=== PATIENT | male | born 1945 | race Caucasian/White ===

== ENCOUNTER → 2017-02-15 | Outpatient (CLI) | payer OTHER ==
[~2017-02-15] MED LIST: AMAN100C18 PO; ASPCH81X PO; CARB1CAP10 PO; CHOL100040 PO; CMBIN INH; PRLSR20 PO; VERA240C2 PO
[2017-02-15 17:49] LABS: FREE PSA 0.07 ng/ml; PROSTATE SPECIFIC ANTIGEN 0.236 ng/ml (0.000-4.000); THYROID STIMULATING HORMONE 0.723 uIu/ml (0.300-4.500)
[2017-02-15 20:21] LABS: LYME DISEASE AB IGG NEG (NEG); LYME DISEASE AB IGM NEG (NEG)
[2017-02-16 05:57] LABS: ESTIMATED AVERAGE GLUCOSE 128 mg/dl; HA1C FLAG Normal (Normal)
--- NOTE | 2017-02-20 08:00 | CODING QUERY MEDICAL NECESSITY ---
SUPPORTING DIAGNOSIS NEEDED Felix PARSONS, A supporting diagnosis is required for the test/procedure performed on this patient in order for us to be reimbursed by the patient's insurance. Please provide a supporting diagnosis for the following test/procedure listed below next to the test name along with your signature. *If there is no additional diagnosis for this patient that would support the following test/procedure please document that below next to the test/procedure. Test(s)/Procedure(s) that require a supporting diagnosis: * 13034 GLYCATED HEMOGLOBIN DIAGNOSIS: * 63466 PSA DIAGNOSIS: DATE OF SERVICE: 02/15/17 Provider Signature: Date: Thank you Alvaro Lozano Health Information Management Once completed, please kindly fax back to [phone] For questions please call [phone]
== END | disposition home or self-care (01) ==
LOC: C.LABPBG 15:54
PROVIDERS: ATTEND Physician Assistant
DX: R63.4 Abnormal weight loss (principal); R53.83 Other fatigue; N40.0 Benign prostatic hyperplasia without lower urinary tract symptoms

== ENCOUNTER → 2017-03-04 | Outpatient (CLI) | payer OTHER ==
[2017-03-04 17:48] LABS: BASO % 0.4 %; BASO ABS # 0.03 K/uL (0-0.2); COMPLETE YES; EOS % 3.8 %; HEMATOCRIT 41.1 % (42-52); IG% 0.4 %; LYMPH % 14.3 %; LYMPH ABS # 1.19 K/uL (1.2-3.4); MEAN CELL VOLUME 94.3 fL (80-100); MEAN CORPUSCULAR HEMOGLOBIN 30.7 pg (25-34); MEAN CORPUSCULAR HGB CONC 32.6 g/dl (32-36); MEAN PLATELET VOLUME 10.6 fL (7.4-10.4); MONO % 8.9 %; NEUT % 72.2 %; PLATELET COUNT 273 K/uL (130-400); RED BLOOD COUNT 4.36 M/uL (4.7-6.1); WHITE BLOOD COUNT 8.32 K/uL (4.8-10.8)
[2017-03-04 18:02] LABS: CALCIUM 8.7 mg/dl (8.5-10.1)
[2017-03-04 18:06] LABS: ALB/GLOB RATIO 1.2 (0.9-2); ALKALINE PHOSPHATASE 91 U/L (45-117); ALT/SGPT 11 U/L (12-78); AST/SGOT 20 U/L (15-37); BLOOD UREA NITROGEN 15 mg/dl (7-18); BUN/CREATININE RATIO 19.6 (10-20); CARBON DIOXIDE 28 mmol/L (21-32); CHLORIDE 103 mmol/L (98-107); CREATININE 0.74 mg/dl (0.60-1.40); GLUCOSE 108 mg/dl (70-99); POTASSIUM 4.1 mmol/L (3.5-5.1); SODIUM 139 mmol/L (136-145)
== END | disposition home or self-care (01) ==
LOC: C.LABPBG 14:42
PROVIDERS: ATTEND Physician Assistant
DX: R63.4 Abnormal weight loss (principal)

== ENCOUNTER → 2017-09-10 | Outpatient (CLI) | payer OTHER ==
[2017-09-10 17:35] LABS: BASO % 0.4 %; BASO ABS # 0.03 K/uL (0-0.2); COMPLETE YES; EOS % 1.7 %; HEMATOCRIT 42.5 % (42-52); IG% 0.4 %; LYMPH % 10.9 %; LYMPH ABS # 0.92 K/uL (1.2-3.4); MEAN CELL VOLUME 95.1 fL (80-100); MEAN CORPUSCULAR HGB CONC 33.6 g/dl (32-36); MEAN PLATELET VOLUME 10.6 fL (7.4-10.4); MONO % 9.3 %; NEUT % 77.3 %; PLATELET COUNT 271 K/uL (130-400); RED BLOOD COUNT 4.47 M/uL (4.7-6.1); WHITE BLOOD COUNT 8.47 K/uL (4.8-10.8)
[2017-09-10 18:04] LABS: ALT/SGPT 11 U/L (12-78); AST/SGOT 16 U/L (15-37); BLOOD UREA NITROGEN 14 mg/dl (7-18); BUN/CREATININE RATIO 18.7 (10-20); CALCIUM 8.2 mg/dl (8.5-10.1); CARBON DIOXIDE 27 mmol/L (21-32); CHLORIDE 100 mmol/L (98-107); CREATININE 0.77 mg/dl (0.60-1.40); GLUCOSE 91 mg/dl (70-99); POTASSIUM 4.2 mmol/L (3.5-5.1); SODIUM 133 mmol/L (136-145)
[2017-09-10 18:16] LABS: ALB/GLOB RATIO 1.1 (0.9-2); ALKALINE PHOSPHATASE 95 U/L (45-117); CHOLESTEROL 158 mg/dl (0-200); CHOLESTEROL/HDL RATIO 1.9; HDL CHOLESTEROL 82 mg/dl; LDL CHOLESTEROL CALCULATED 66 mg/dl; TRIGLYCERIDES 49 mg/dl (0-150); VERY LOW DENSITY LIPOPROT CALC 10 mg/dl
[2017-09-10 19:01] LABS: LYME DISEASE AB IGG NEG (NEG); LYME DISEASE AB IGM NEG (NEG)
[2017-09-11 07:13] LABS: ESTIMATED AVERAGE GLUCOSE 123 mg/dl; HA1C FLAG Normal (Normal)
== END | disposition home or self-care (01) ==
LOC: C.LABPBG 12:04
PROVIDERS: ATTEND Internal Medicine Geriatric Medicine
DX: E78.5 Hyperlipidemia, unspecified (principal); E53.8 Deficiency of other specified B group vitamins; R73.9 Hyperglycemia, unspecified; R63.4 Abnormal weight loss; R41.3 Other amnesia

== ENCOUNTER → 2017-12-09 | Outpatient (CLI) | payer OTHER | END | disposition home or self-care (01) | LOC: C.LABPBG 12:38 | PROVIDERS: ATTEND Physician Assistant | DX: G40.909 Epilepsy, unspecified, not intractable, without status epilepticus (principal) ==

== ENCOUNTER 2019-06-03 17:24 | Observation (INO) ==
[2019-06-03] MEDS ORDERED: SODIUM CHLORIDE 0.9% 500 ML IV SCH (19:00)
[2019-06-03 19:45] LABS: Basophils # (auto) 0.02 K/uL (0-0.2); Basophils % (auto) 0.1 %; Eosinophils # (auto) 0.04 K/uL (0-0.5); Eosinophils % (auto) 0.3 %; Hematocrit (blood only) 43.4 % (42-52); Hemoglobin 14.8 g/dL (14.0-18.0); Immature Granulocytes # (auto) 0.04 K/uL (0.00-0.02); Immature Granulocytes % (auto) 0.3 %; Lymphocytes # (auto) 0.57 K/uL (1.2-3.4); Lymphocytes % (auto) 3.8 %; Mean Corpuscular Hemoglobin 31.4 pg (25-34); Mean Corpuscular Hgb Conc 34.1 g/dL (32-36); Mean Corpuscular Volume 92.1 fL (80-100); Mean Platelet Volume 10.8 fL (7.4-10.4); Monocytes # (auto) 1.11 K/uL (0.11-0.59); Monocytes % (auto) 7.3 %; Neutrophils # (auto) 13.36 K/uL (1.4-6.5); Neutrophils % (auto) 88.2 %; Platelet Count 241 K/uL (130-400); RDW Coefficient of Variation 14.8 % (11.5-14.5); RDW Standard Deviation 50.3 fL (36.4-46.3); Red Blood Count 4.71 M/uL (4.7-6.1); White Blood Count 15.14 K/uL (4.8-10.8)
[2019-06-03 19:57] LABS: BUN Creatinine Ratio 24.4 (10-20); Blood Urea Nitrogen 24 mg/dl (7-18); Calcium 8.5 mg/dl (8.5-10.1); Carbon Dioxide 24 mmol/L (21-32); Chloride 106 mmol/L (98-107); Creatinine Clr Calc Pharmacy 57.9 ml/min; Est GFR (African American) 88.9; Est GFR (Non-African American) 76.7; Glucose 109 mg/dl (70-99); Lipase 78 U/L (73-393); Magnesium 2.2 mg/dl (1.8-2.4); Potassium 4.2 mmol/L (3.5-5.1); Sodium 139 mmol/L (136-145)
[2019-06-03 20:03] LABS: Alanine Aminotransferase 9 U/L (12-78); Albumin Globulin Ratio 1.1 (0.9-2); Alkaline Phosphatase 105 U/L (45-117); Aspartate Aminotransferase 18 U/L (15-37); Bilirubin,Total 0.6 mg/dl (0.2-1); Globulin 3.8 gm/dl (2.5-4.0); Total Protein 7.8 gm/dl (6.4-8.2); Troponin I < 0.015 ng/ml (0-0.045)
[2019-06-03] MEDS ORDERED: IOVERSOL 100ml IV PRN (20:22)
--- NOTE | 2019-06-03 20:42 | CT Scan Report ---
CT abd pelvis IV con only CLINICAL HISTORY: 73 years-old Male presenting with possible obstruction, history of Parkinson's dise ase. TECHNIQUE: Multidetector CT of the abdomen and pelvis was performed after the administration of intra venous contrast. IV contrast: 90 mL of Optiray 320. One or more dose lowering techniques were used co nsistent with the principles of ALARA (as low as reasonably achievable), including automatic exposure control, mA or kV adjustment to individual patient size, and/or use of iterative reconstruction. COMPARISON: 08/05/2018. CT DOSE (mGy.cm): The estimated cumulative dose is 256.67 mGy.cm. FINDINGS: Front Desk Associate topogram: Unremarkable. Motion artifact degradation from the patient's tremors results in moderate image quality degradation and moderately limited diagnostic sensitivity. Lung bases: Aortic valve and mitral annular calcification. Normal heart size. No pericardial or pleur al effusion. No focal infiltrate or nodule at the lung bases. Liver: Congenital hypoplasia of the medial segments of the left hepatic lobe. No focal lesion. Patent hepatic vasculature. Biliary: No intrahepatic or extrahepatic biliary ductal dilatation. Normal gallbladder. Pancreas: Normal. Spleen: Normal. Adrenal glands: Normal. Kidneys and ureters: Exophytic dominant simple cyst in the right kidney. Kidneys otherwise normal. Bladder: Incompletely evaluated secondary to underdistention. Pelvic organs: Prostate enlargement likely secondary to benign prostatic hyperplasia. Bowel: The rectum is moderately distended with liquid stool suggesting a diarrheal state. The colon i s diffusely mildly distended with fluid and gas. There may be wall thickening in the ascending colon though this is not well delineated. No bowel obstruction. Small bowel wall thickening is suggested in the proximal ileum in the left mid abdomen. Trace hiatal hernia. Peritoneal cavity: No free fluid or intraperitoneal gas. Lymph nodes: No enlarged lymph nodes in the abdomen or pelvis. Vasculature: Atherosclerosis of the normal caliber abdominal aorta. IVC patent. Abdominal wall: Normal. Musculoskeletal: Degenerative changes of the spine. IMPRESSION: Motion artifact degradation from the patient's tremors results in moderate image quality degradation and moderately limited diagnostic sensitivity. 1. Fluid throughout the large bowel is evidence of a diarrheal state. There is also suggestion of pr oximal small bowel wall thickening. This could represent mild enterocolitis. No bowel obstruction. Electronically signed by: Isaias Ojeda M.D. 06/03/2019 8:40 PM
[2019-06-03] MEDS ORDERED: CARBIDOPA/LEVODOPA 25/100MG TAB PO STA (20:59)
[2019-06-03] MEDS ORDERED: ONDANSETRON INJ 2 MG/ML 2 ML VIAL IV PRN (23:38)
[2019-06-03] MEDS ORDERED: ALBUTEROL HFA 8 GM INHALER INH PRN (23:38)
[2019-06-03] MEDS ORDERED: ONDANSETRON 4 MG OD TAB PO PRN (23:38)
[2019-06-03] MEDS ORDERED: ACETAMINOPHEN 500 MG TAB PO PRN (23:38)
[2019-06-04] MEDS: NSS + 20MEQ KCL 20 MEQ/1,000 ML BAG IV SCH ×2 (01:13→08:14)
[2019-06-04] MEDS: CARBAMAZEPINE 100 MG TABCR PO SCH ×2 (01:15→08:10)
[2019-06-04] MEDS: CARBIDOPA/LEVODOPA 25/100MG TAB PO SCH ×5 (01:16→15:16)
[2019-06-04] MEDS: CARVEDILOL 6.25 MG TAB PO SCH ×2 (01:17→08:10)
--- NOTE | 2019-06-04 03:32 | History & Physical Report ---
Date of Service June 04, 2019 The patient was seen and admitted on June 03, 2019 Assessment & Plan (1) Enterocolitis: Generalized abdominal pain/enterocolitis/ileus- Order stool culture and C. difficile. There is a potential that this is a food ingestion issue. Patient is being admitted due to history of volvulus requiring procedures in the past. Full liquid diet as tolerated. Zofran 4 mg IV every 6 hours PRN. Famotidine 20 mg IV every 12 hours. Supportive treatment for now. Present on Admission?: Yes (2) Diffuse abdominal pain: See above Present on Admission?: Yes (3) Ileus: See above Present on Admission?: Yes (4) Parkinsons disease: Continue carbidopa levodopa Present on Admission?: Yes (5) Dyslipidemia: Continue atorvastatin Present on Admission?: Yes (6) Seizure, epileptic: Seizure disorder/anxiety with depression- Continue buspirone, carbamazepine, fluoxetine, sertraline. Present on Admission?: Yes (7) Depression with anxiety: See above Present on Admission?: Yes (8) Hyperactive airway disease: Continue Symbicort and pro-air HFA. Present on Admission?: Yes (9) Hypertension: Hypertension/hypertrophic cardia myopathy/aortic stenosis- Continue carvedilol 6.25 mg p.o. twice daily with hold parameters, and aspirin. Hold furosemide as needed Present on Admission?: Yes (10) Cardiomyopathy, hypertrophic: See above Present on Admission?: Yes History of Present Illness Chief Complaint: The patient presents to the emergency department with 2 to 3 days of loose stools and abdominal discomfort. Primary Care Provider: Geraldine Zaman DO The patient is a 73-year-old male with a past medical history significant for volvulus, who presents emergency department with persistent abdominal discomfort with loose stools. His work-up in the emergency department included a CT scan of abdomen pelvis, which showed a fluid-filled colon, consistent with enterocolitis. However, because of his significant history of volvulus, the recommendation is to admit the patient for observation overnight. Upon questioning, the patient does report that he did eat out a couple days before he became sick, but he reports that they were at 80 degrees where he has frequented in the past, and does not know if there is a single food that might of been a problem. Allergies Allergy/AdvReac Type Severity Reaction Status Date / Time No Known Allergies Allergy Verified 06/03/19 13:26 Home Medications Home Medications Medication Instructions Recorded Confirmed Type Symbicort 2 puff INHALATION QAM 06/04/18 06/03/19 History albuterol sulfate [ProAir HFA] 1 - 2 puff INHALATION Q6 PRN 06/04/18 06/03/19 History aspirin [Aspirin Low Dose] 81 mg PO DAILY 06/04/18 06/03/19 History atorvastatin [Lipitor] 40 mg PO HS 06/04/18 06/03/19 History carbidopa-levodopa 2.5 tab PO 5XD 06/04/18 06/03/19 History carvedilol [Coreg] 6.25 mg PO BID 06/04/18 06/03/19 History melatonin 10 mg PO HS PRN 06/04/18 06/03/19 History omeprazole 20 mg PO DAILY 06/04/18 06/03/19 History polyethylene glycol 3350 [Miralax] 34 g PO DAILY PRN 06/04/18 06/03/19 History acetaminophen [Tylenol Extra 1,000 mg PO Q6H PRN 06/06/18 06/03/19 History Strength] ondansetron [Zofran ODT] 4 mg PO Q6 PRN 06/06/18 06/03/19 History furosemide [Lasix] 20 mg PO DAILY PRN 08/05/18 06/03/19 History cholecalciferol (vitamin D3) 2,000 2,000 units PO DAILY #30 cap 03/25/19 06/03/19 Rx unit capsule tamsulosin 0.4 mg capsule 0.4 mg PO QPM #90 cap 04/20/19 06/03/19 Rx fluoxetine 20 mg capsule 20 mg PO DAILY 90 Days #90 cap 06/02/19 06/03/19 Rx buspirone 10 mg PO DAILYBL 06/03/19 06/03/19 History buspirone 10 mg tablet 20 mg PO [facility] tab 06/03/19 06/03/19 History carbamazepine 300 mg PO BID 06/03/19 06/03/19 History sennosides-docusate sodium [Senna 2 tab PO BID 06/03/19 06/03/19 History with Docusate Sodium] sertraline 100 mg PO DAILY 06/03/19 06/03/19 History Past Med/Surg History Medical History GERD (gastroesophageal reflux disease) Hypertension BPH (benign prostatic hyperplasia) Mild cognitive impairment Anxiety Aortic stenosis Cardiomyopathy, hypertrophic Carotid atherosclerosis Constipation, chronic Depression with anxiety Dyslipidemia Hyperactive airway disease Mitral and aortic regurgitation Orthostatic hypotension Parkinsons disease REM sleep behavior disorder Seizure, epileptic Urgency incontinence Vitamin B12 deficiency Vitamin D deficiency Renal cyst Right 8 cm minimally complex cyst-needs routine f/u after discharge-consider Urology referral as outpt Hypertension (Inactive) Acute respiratory failure with hypoxia Anemia BPH (benign prostatic hyperplasia) Depression GERD (gastroesophageal reflux disease) History of open sigmoidectomy Hypertrophic cardiomyopathy Hyponatremia LLL pneumonia Mitral regurgitation Parkinson disease Seizure disorder Sigmoid volvulus Volvulus Surgical History H/O colonoscopy last scope was in 2012 History of colectomy History of tonsillectomy [place] teeth extracted Family History Mother , age 68 of ovarian cancer. Ovarian cancer Colorectal cancer Father , age 83 with congestive heart failure and had [place] son's disease since age 70. 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 Feels Safe at Home: Yes Safety Concerns: Feels Safe At This Time Smoking Status: Never smoker Second Hand Exposure: Yes ; Hx Alcohol Use: Yes Alcohol type: beer Hx Substance Use: No Review of Systems Review of Systems: The patient denies chest pain, palpitations, shortness of breath, dyspnea on exertion, cough, lower extremity swelling, sore throat, fevers, chills, sweats, constipation, blood in urine or stool, dysuria, urinary frequency or urgency, lightheadedness, dizziness, headache, memory loss, loss of consciousness, rash, abnormal bruising or bleeding, imbalance, focal or generalized weakness, numbness or tingling in arms or legs, generalized arthralgias or myalgias, back or neck pain, or night sweats. The review of systems is otherwise negative other than for that already noted above, and at least 10 systems have been reviewed. Physical Exam Physical Exam: The patient is awake, alert and oriented 3, well developed and well nourished, normocephalic and atraumatic, lying in bed and in no acute distress. HEENT--PERRL, EOMI, mucous membranes and oropharynx dry. Neck--supple. No JVD. No bruits. Thyroid normal, trachea midline, no adenopathy. Heart--normal S1 and S2. No murmurs, rubs or gallops. Lungs--clear bilaterally, no respiratory distress, no accessory muscle use. Abdomen--normal bowel sounds and soft. Nontender. Nondistended, no hernias or masses, no organomegaly. Extremities--no cyanosis or clubbing. No edema. There are good distal pulses b/l. Dermatologic--normal skin turgor, normal color, no abnormal lymph nodes, no rash. Neurologic--cranial nerves II through XII grossly intact. Patient has baseline tremor worse with left upper extremity, but may involve all extremities Rheumatologic--exam limited by frequent tremors and shakes Psychiatric--normal affect. Results & Data Vital Signs (Past 12 Hours) Vital Signs Temp Pulse Pulse Resp BP BP BP 06/04/19 00:00 98.2 F 66 18 138/71 06/03/19 23:30 98.2 F 66 18 138/71 06/03/19 22:36 72 20 137/47 L 06/03/19 22:30 79 17 06/03/19 22:00 65 18 138/68 06/03/19 21:36 67 18 155/56 H 06/03/19 21:31 71 23 06/03/19 21:00 76 16 06/03/19 20:30 77 16 06/03/19 20:16 64 16 06/03/19 20:11 66 20 06/03/19 20:04 65 16 146/69 H 06/03/19 17:42 97.9 F 64 18 95/60 L Pulse Ox 06/04/19 00:00 95 06/03/19 23:30 95 06/03/19 22:36 94 06/03/19 22:30 06/03/19 22:00 93 06/03/19 21:36 94 06/03/19 21:31 94 06/03/19 21:00 96 06/03/19 20:30 06/03/19 20:16 94 06/03/19 20:11 95 06/03/19 20:04 95 06/03/19 17:42 95 Laboratory Results Laboratory Results WBC 15.14 K/uL (4.8-10.8) H 06/03/19 19:21 RBC 4.71 M/uL (4.7-6.1) 06/03/19 19:21 Hgb 14.8 g/dL (14.0-18.0) 06/03/19 19:21 Hct 43.4 % (42-52) 06/03/19 19:21 MCV 92.1 fL (80-100) 06/03/19 19:21 MCH 31.4 pg (25-34) 06/03/19 19: MCHC 34.1 g/dL (32-36) 06/03/19 19:21 RDW Std Deviation 50.3 fL (36.4-46.3) H 06/03/19 19:21 RDW Coeff of [place] 14.8 % (11.5-14.5) H 06/03/19 19:21 Plt Count 241 K/uL (130-400) 06/03/19 19:21 MPV 10.8 fL (7.4-10.4) H 06/03/19 19:21 Immature Gran % (Auto) 0.3 % 06/03/19 19:21 Neut % (Auto) 88.2 % 06/03/19 19:21 Lymph % (Auto) 3.8 % 06/03/19 19:21 Andrew % (Auto) 7.3 % 06/03/19 19:21 Eos % (Auto) 0.3 % 06/03/19 19:21 Baso % (Auto) 0.1 % 06/03/19 19:21 Immature Gran # (Auto) 0.04 K/uL (0.00-0.02) H 06/03/19 19:21 Neut # (Auto) 13.36 K/uL (1.4-6.5) H 06/03/19 19:21 Lymph # (Auto) 0.57 K/uL (1.2-3.4) L 06/03/19 19:21 Andrew # (Auto) 1.11 K/uL (0.11-0.59) H 06/03/19 19:21 Eos # (Auto) 0.04 K/uL (0-0.5) 06/03/19 19:21 Baso # (Auto) 0.02 K/uL (0-0.2) 06/03/19 19:21 Sodium 139 mmol/L (136-145) 06/03/19 19:21 Potassium 4.2 mmol/L (3.5-5.1) 06/03/19 19:21 Chloride 106 mmol/L (98-107) 06/03/19 19:21 Carbon Dioxide 24 mmol/L (21-32) 06/03/19 19:21 Anion Gap 9.0 (3-11) 06/03/19 19:21 BUN 24 mg/dl (7-18) H 06/03/19 19:21 Creatinine 0.98 mg/dl (0.6-1.4) 06/03/19 19:21 Est Cr Clr Drug Dosing 57.9 ml/min 06/03/19 19:21 Est GFR ( Amer) 88.9 06/03/19 19:21 Est GFR (Non-Af Amer) 76.7 06/03/19 19:21 BUN/Creatinine Ratio 24.4 (10-20) H 06/03/19 19:21 Glucose 109 mg/dl (70-99) H 06/03/19 19:21 Calcium 8.5 mg/dl (8.5-10.1) 06/03/19 19:21 Magnesium 2.2 mg/dl (1.8-2.4) 06/03/19 19:21 Total Bilirubin 0.6 mg/dl (0.2-1) 06/03/19 19:21 AST 18 U/L (15-37) 06/03/19 19:21 ALT 9 U/L (12-78) L 06/03/19 19:21 Alkaline Phosphatase 105 U/L (45-117) 06/03/19 19:21 Troponin I < 0.015 ng/ml (0-0.045) 06/03/19 19:21 Total Protein 7.8 gm/dl (6.4-8.2) 06/03/19 19:21 Albumin 4.0 gm/dl (3.4-5.0) 06/03/19 19:21 Globulin 3.8 gm/dl (2.5-4.0) 06/03/19 19:21 Albumin/Globulin Ratio 1.1 (0.9-2) 06/03/19 19:21 Lipase 78 U/L (73-393) 06/03/19 19:21 Carbamazepine 10.9 mcg/ml (4-12) 06/03/19 19:21 Diagnostic Findings [place], [place] [phone] CT Scan Report Patient: TRAVIS OLMSTEAD DAdmit Date: 06/03/19 MR#: [id number]: [address] Acct ID:[id number]: Date: 1945[facility] Zip: [place] [address] Age: 73Location: ED Sex: M Room/Bed: Att Phy:Diagnosis: BOWEL OBSTRUCTION An Phy: Geraldine Zaman, DOService Date: 06/03/19 Fam Phy:Interpreting Phy: Isaias Ojeda MD Admit Phy: Ordering Phy: Shiv Riley M.D. cc: ~ CT abd pelvis IV con only CLINICAL HISTORY: 73 years-old Male presenting with possible obstruction, history of Parkinson's disease. TECHNIQUE: Multidetector CT of the abdomen and pelvis was performed after the administration of intravenous contrast. IV contrast: 90 mL of Optiray 320. One or more dose lowering techniques were used consistent with the principles of ALARA (as low as reasonably achievable), including automatic exposure control, mA or kV adjustment to individual patient size, and/or use of iterative reconstruction. COMPARISON: 08/05/2018. CT DOSE (mGy.cm): The estimated cumulative dose is 256.67 mGy.cm. FINDINGS: Auxiliary Operator topogram: Unremarkable. Motion artifact degradation from the patient's tremors results in moderate image quality degradation and moderately limited diagnostic sensitivity. Lung bases: Aortic valve and mitral annular calcification. Normal heart size. No pericardial or pleural effusion. No focal infiltrate or nodule at the lung bases. Liver: Congenital hypoplasia of the medial segments of the left hepatic lobe. No focal lesion. Patent hepatic vasculature. Biliary: No intrahepatic or extrahepatic biliary ductal dilatation. Normal gallbladder. Pancreas: Normal. Spleen: Normal. Adrenal glands: Normal. Kidneys and ureters: Exophytic dominant simple cyst in the right kidney. Kidneys otherwise normal. Bladder: Incompletely evaluated secondary to underdistention. Pelvic organs: Prostate enlargement likely secondary to benign prostatic hyperplasia. Bowel: The rectum is moderately distended with liquid stool suggesting a diarrheal state. The colon is diffusely mildly distended with fluid and gas. There may be wall thickening in the ascending colon though this is not well delineated. No bowel obstruction. Small bowel wall thickening is suggested in the proximal ileum in the left mid abdomen. Trace hiatal hernia. Peritoneal cavity: No free fluid or intraperitoneal gas. Lymph nodes: No enlarged lymph nodes in the abdomen or pelvis. Vasculature: Atherosclerosis of the normal caliber abdominal aorta. IVC patent. Abdominal wall: Normal. Musculoskeletal: Degenerative changes of the spine. IMPRESSION: Motion artifact degradation from the patient's tremors results in moderate image quality degradation and moderately limited diagnostic sensitivity. 1. Fluid throughout the large bowel is evidence of a diarrheal state. There is also suggestion of proximal small bowel wall thickening. This could represent mild enterocolitis. No bowel obstruction. Electronically signed by: Isaias Ojeda M.D. 06/03/2019 8:40 PM Dictated: 06/03/192032 Transcribed: 06/03/192032 Code Status & VTE Plan Code Status Full code VTE Prophylaxis Plan VTE Prophylaxis will be ordered: Yes PG Care Time/CCT Total # of Minutes Spent Total Time Spent with Patient: Total time spent is greater than 50% in coordination of care (as documented) at patient's floor/unit and/or counseling patient:
[2019-06-04] MEDS ORDERED: FLUOXETINE HCL 20 MG CAP PO SCH (09:00)
[2019-06-04] MEDS ORDERED: ASPIRIN 81 MG ECTAB PO SCH (09:00)
[2019-06-04] MEDS ORDERED: PANTOprazole 40 MG TAB PO SCH (09:00)
[2019-06-04] MEDS ORDERED: BUDESONIDE/FORMOTEROL FUMARATE 80/4.5 60 PUFFS/INHALER INH SCH (09:00)
[2019-06-04] MEDS ORDERED: SERTRALINE HCL 50 MG TABLET PO SCH (09:00)
[2019-06-04] MEDS ORDERED: CHOLECALCIFEROL 1,000 UNITS TAB PO SCH (09:00)
--- NOTE | 2019-06-04 12:13 | Emergency Department Note ---
Entered by Mario Lema acting as a scribe for Shiv Riley MD History of Present Illness General Chief complaint: GI Assessment Stated complaint: BOWEL OBSTRUCTION Time Seen by Provider: 06/03/19 18:47 Source: patient History of Present Illness Onset (ago): hour(s) (this morning) Location: abdomen Pain Consistency: + constant Maximum Pain Intensity: 4 Current Pain Intensity: 1 Associated symptoms: + denies other symptoms (bloating and fullness to the abdomen) and + other (nausea, constipation) The patient is a 73 y/o male who presents to the ED after having an abdominal x- ray at his PCP's office that showed a bowel obstruction. The patient states for the past 48 hours, he has had an upset stomach with intermittent constipation. He reports he did a Dulcolax suppository that relieved his constipation. The patient notes he developed constant abdominal pain and intermittent nausea this morning. He rates his current discomfort a 1/10 with the max being a 4/10. He states he took Zofran for his nausea which helped. The patient reports he was then evaluated at his PCP's office today and had an abdominal x-ray performed that showed he had an obstruction. He notes a history of an obstruction around this same time last year that was caused by a volvulus. The patient states he had to have part of his bowel removed to resolve his obstruction. He reports his symptoms feel similar to the last time he had an obstruction. The patient notes he does not feel bloated or full in his abdomen, and he has not eaten today. He states he feels warm but did not take his temperature today. The patient reports he is still able to urinate. He notes a history of Parkinson's disease and a heart murmur. Home Medications Home Medications Medication Instructions Recorded Confirmed Type Symbicort 2 puff INHALATION QAM 06/04/18 06/03/19 History albuterol sulfate [ProAir HFA] 1 - 2 puff INHALATION Q6 PRN 06/04/18 06/03/19 History aspirin [Aspirin Low Dose] 81 mg PO DAILY 06/04/18 06/03/19 History atorvastatin [Lipitor] 40 mg PO HS 06/04/18 06/03/19 History carbidopa-levodopa 2.5 tab PO 5XD 06/04/18 06/03/19 History carvedilol [Coreg] 6.25 mg PO BID 06/04/18 06/03/19 History melatonin 10 mg PO HS PRN 06/04/18 06/03/19 History omeprazole 20 mg PO DAILY 06/04/18 06/03/19 History polyethylene glycol 3350 [Miralax] 34 g PO DAILY PRN 06/04/18 06/03/19 History acetaminophen [Tylenol Extra 1,000 mg PO Q6H PRN 06/06/18 06/03/19 History Strength] ondansetron [Zofran ODT] 4 mg PO Q6 PRN 06/06/18 06/03/19 History furosemide [Lasix] 20 mg PO DAILY PRN 08/05/18 06/03/19 History cholecalciferol (vitamin D3) 2,000 2,000 units PO DAILY #30 cap 03/25/19 0 06/03/19 Rx unit capsule tamsulosin 0.4 mg capsule 0.4 mg PO QPM #90 cap 04/20/19 06/03/19 Rx fluoxetine 20 mg capsule 20 mg PO DAILY 90 Days #90 cap 06/02/19 06/03/19 Rx buspirone 10 mg PO DAILYBL 06/03/19 06/03/19 History buspirone 10 mg tablet 20 mg PO AMHS tab 06/03/19 06/03/19 History carbamazepine 300 mg PO BID 06/03/19 06/03/19 History sennosides-docusate sodium [Senna 2 tab PO BID 06/03/19 06/03/19 History with Docusate Sodium] sertraline 100 mg PO DAILY 06/03/19 06/03/19 History Allergies Allergy/AdvReac Type Severity Reaction Status Date / Time No Known Allergies Allergy Verified 06/03/19 13:26 Past Med/Surg History Medical History Aortic stenosis (Acute) Cardiomyopathy, hypertrophic (Acute) Carotid atherosclerosis (Acute) Constipation, chronic (Acute) Depression with anxiety (Acute) Dyslipidemia (Acute) Hyperactive airway disease (Acute) Memory loss (Acute) Mitral and aortic regurgitation (Acute) Orthostatic hypotension (Acute) Parkinsons disease (Acute) REM sleep behavior disorder (Acute) Seizure, epileptic (Acute) Urgency incontinence (Acute) Vitamin B12 deficiency (Acute) Vitamin D deficiency (Acute) Renal cyst Right 8 cm minimally complex cyst-needs routine f/u after discharge-consider Urology referral as outpt Hypertension (Inactive) Acute respiratory failure with hypoxia Anemia Anxiety BPH (benign prostatic hyperplasia) BPH (benign prostatic hyperplasia) Depression GERD (gastroesophageal reflux disease) GERD (gastroesophageal reflux disease) History of open sigmoidectomy Hyperlipidemia Hypertension Hypertrophic cardiomyopathy Hyponatremia Ileus LLL pneumonia Mild cognitive impairment Mitral regurgitation Parkinson disease Seizure disorder Seizures Sigmoid volvulus Volvulus Surgical History H/O colonoscopy last scope was in 2013 History of colectomy History of tonsillectomy [place] teeth extracted Family History Mother , age 68 of ovarian cancer. Ovarian cancer Colorectal cancer Father , age 83 with congestive heart failure and had Parkinson's disease since age 70. 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 Feels Safe at Home: Yes Safety Concerns: Feels Safe At This Time Smoking Status: Never smoker Second Hand Exposure: Yes ; Hx Alcohol Use: Yes Alcohol type: beer Hx Substance Use: No Review of Systems See HPI for pertinent positives & negatives. and A total of 10 systems reviewed and were otherwise negative Physical Exam Vital Signs Vital Signs - 24 hr 06/03/19 17:42 06/03/19 20:04 06/03/19 20:11 Temperature 36.6 C Temperature Source Oral Sepsis Recent Fever Within 48 Hours Yes Sepsis New/Unexplained Change in Mental Status No Sepsis Action Taken by Nursing No Action Required Pulse Rate 64 65 66 Pulse Rate from SpO2 Sensor 65 Pulse Rhythm Regular Respiratory Rate 18 16 20 Blood Pressure 95/60 L 146/69 H Blood Pressure Mean 71 94 Pulse Oximetry 95 95 95 Oxygen Delivery Method Room Air Room Air 06/03/19 20:16 06/03/19 20:30 06/03/19 21:00 Temperature Temperature Source Sepsis Recent Fever Within 48 Hours Sepsis New/Unexplained Change in Mental Status Sepsis Action Taken by Nursing Pulse Rate 64 77 76 Pulse Rate from SpO2 Sensor 65 77 Pulse Rhythm Respiratory Rate 16 16 16 Blood Pressure Blood Pressure Mean Pulse Oximetry 94 96 Oxygen Delivery Method 06/03/19 21:31 06/03/19 21:36 06/03/19 22:00 Temperature Temperature Source Sepsis Recent Fever Within 48 Hours Sepsis New/Unexplained Change in Mental Status Sepsis Action Taken by Nursing Pulse Rate 71 67 65 Pulse Rate from SpO2 Sensor 70 67 65 Pulse Rhythm Respiratory Rate 23 18 18 Blood Pressure 155/56 H 138/68 Blood Pressure Mean 89 91 Pulse Oximetry 94 94 93 Oxygen Delivery Method GENERAL: Patient is in no acute distress. HEENT: No acute trauma, normocephalic atraumatic, mucous membranes moist, no nasal congestion, no scleral icterus. NECK: No stridor, no adenopathy, no meningismus, trachea is midline. LUNGS: Clear to auscultation bilaterally, no wheeze, no rhonchi, breath sounds equal. HEART: 3/6 systolic murmur, regular rate and rhythm. ABDOMEN: Soft, mildly diffusely tender upon palpation, bowel sounds positive, no hernias, no peritonitis. EXTREMITIES: No cyanosis or edema, full range of motion of all the joints without pain or difficulty, no signs for acute trauma. NEUROLOGIC: Oriented x 3, no acute motor or sensory deficits, no focal weakness. Extremity tremor noted. SKIN: No rash, no jaundice, no diaphoresis. Course 1850: Past medical records reviewed. The patient was evaluated in room C07. A complete history and physical exam was performed. 2057: Upon reevaluation, I discussed findings and results with patient. He is feeling similar to before. He verbalized agreement of the treatment plan. The patient will be evaluated for further management and care. 2108: I discussed the patient's case with Dr. Weldon, General Surgery. He states nothing is acutely surgical at this point in time. 2118: I spoke with Dr. Gross of the [facility] Hospitalist Service. The patient will be evaluated for further management and care. Administered Medications Aspirin (Ecotrin Ectab) 81 mg PO DAILY DREW Stop: 07/04/19 08:59 Last Admin: 06/04/19 08:13 Dose: 81 mg Documented by: [id number] Budesonide/Formoterol Fumarate (Symbicort 80mcg/4.5mcg) 2 puffs INH QAM DREW Stop: 07/04/19 08:59 Last Admin: 06/04/19 08:13 Dose: 2 puffs Documented by: [id number] Buspirone HCl (Buspar) 10 mg PO DAILYBL DREW Stop: 07/04/19 10:29 Last Admin: 06/04/19 09:32 Dose: 10 mg Documented by: [id number] Buspirone HCl (Buspar) 20 mg PO AMHS DREW Stop: 07/04/19 08:59 Last Admin: 06/04/19 08:12 Dose: 20 mg Documented by: [id number] Carbamazepine (Tegretol Xr) 300 mg PO BID DREW Stop: 07/03/19 23:37 Last Admin: 06/04/19 08:10 Dose: 300 mg Documented by: [id number] Admin: 06/04/19 01:15 Dose: 300 mg Documented by: [id number] Carbidopa/Levodopa (Sinemet 25/100 Mg) 2.5 tab PO 5XDQ3H DREW Stop: 07/04/19 00:00 Last Admin: 06/04/19 09:31 Dose: 2.5 tab Documented by: [id number] Admin: 06/04/19 08:08 Dose: 2.5 tab Documented by: [id number] Admin: 06/04/19 01:16 Dose: 2.5 tab Documented by: [id number] Carvedilol (Coreg) 6.25 mg PO BID DREW Stop: 07/03/19 23:37 Last Admin: 06/04/19 08:10 Dose: 6.25 mg Documented by: [id number] Admin: 06/04/19 01:17 Dose: 6.25 mg Documented by: [id number] Fluoxetine HCl (Prozac) 20 mg PO DAILY DREW Stop: 07/04/19 08:59 Last Admin: 06/04/19 08:12 Dose: 20 mg Documented by: [id number] Potassium Chloride/Sodium Chloride (Normal Saline W/20 Meq Kcl) 20 meq in 1,000 mls @ 100 mls/hr IV .Q10H DREW Stop: 07/03/19 23:37 Last Admin: 06/04/19 08:14 Dose: 100 mls/hr Documented by: [id number] Infusion: 06/04/19 08:14 Dose: 100 mls/hr Documented by: [id number] Admin: 06/04/19 01:13 Dose: 100 mls/hr Documented by: [id number] Ioversol (Optiray 320 100ml) 90 ml IV ONCE PRN PRN Reason: Interaction Checking Stop: 06/07/19 20:21 Last Admin: 06/03/19 20:23 Dose: 90 ml Documented by: [id number] Pantoprazole Sodium (Protonix) 40 mg PO DAILY DREW Stop: 07/04/19 08:59 Last Admin: 06/04/19 08:13 Dose: 40 mg Documented by: [id number] Sertraline HCl (Zoloft) 100 mg PO DAILY DREW Stop: 07/04/19 08:59 Last Admin: 06/04/19 08:11 Dose: 100 mg Documented by: [id number] Vitamin D (Vitamin D3) 2,000 units PO DAILY DREW Stop: 07/04/19 08:59 Last Admin: 06/04/19 08:13 Dose: 2,000 units Documented by: [id number] Discontinued Medications Carbidopa/Levodopa (Sinemet 25/100 Mg) 2.5 tab PO NOW STA Stop: 06/03/19 21:00 Last Admin: 06/03/19 21:31 Dose: 2.5 tab Documented by: [id number] Sodium Chloride (Nss) 500 mls @ 999 mls/hr IV .Q31M DREW Stop: 06/03/19 19:30 Last Infusion: 06/03/19 20:52 Dose: 0 mls/hr Documented by: [id number] Admin: 06/03/19 20:01 Dose: 999 mls/hr Documented by: [id number] Medical Decision Making Differential Diagnosis Differential diagnosis includes: bowel obstruction, constipation, food born or viral illness, electrolyte imbalance, anemia, dehydration. Medical Records Attestation: I reviewed the patient's medical records. Home Medications Current Medication List: was personally reviewed by me Laboratory Data Attestation: I reviewed the patient's lab results. Result diagrams: 06/03/19 19:21 06/03/19 19:21 Lab Results 06/03/19 06/03/19 06/03/19 Range/Units 19:21 19:21 19:21 WBC 15.14 H (4.8-10.8) K/uL RBC 4.71 (4.7-6.1) M/uL Hgb 14.8 (14.0-18.0) g/dL Hct 43.4 (42-52) % MCV 92.1 (80-100) fL MCH 31.4 (25-34) pg MCHC 34.1 (32-36) g/dL RDW Std Deviation 50.3 H (36.4-46.3) fL RDW Coeff of [place] 14.8 H (11.5-14.5) % Plt Count 241 (130-400) K/uL MPV 10.8 H (7.4-10.4) fL Immature Gran % (Auto) 0.3 % Neut % (Auto) 88.2 % Lymph % (Auto) 3.8 % [place] % (Auto) 7.3 % Eos % (Auto) 0.3 % Baso % (Auto) 0.1 % Immature Gran # (Auto) 0.04 H (0.00-0.02) K/uL Neut # (Auto) 13.36 H (1.4-6.5) K/uL Lymph # (Auto) 0.57 L (1.2-3.4) K/uL [place] # (Auto) 1.11 H (0.11-0.59) K/uL Eos # (Auto) 0.04 (0-0.5) K/uL Baso # (Auto) 0.02 (0-0.2) K/uL Sodium 139 (136-145) mmol/L Potassium 4.2 (3.5-5.1) mmol/L Chloride 106 (98-107) mmol/L Carbon Dioxide 24 (21-32) mmol/L Anion Gap 9.0 (3-11) BUN 24 H (7-18) mg/dl Creatinine 0.98 (0.6-1.4) mg/dl Est Cr Clr Drug Dosing 57.9 ml/min Est GFR ( Amer) 88.9 Est GFR (Non-Af Amer) 76.7 BUN/Creatinine Ratio 24.4 H (10-20) Glucose 109 H (70-99) mg/dl Calcium 8.5 (8.5-10.1) mg/dl Magnesium 2.2 (1.8-2.4) mg/dl Total Bilirubin 0.6 (0.2-1) mg/dl AST 18 (15-37) U/L ALT 9 L (12-78) U/L Alkaline Phosphatase 105 (45-117) U/L Troponin I < 0.015 (0-0.045) ng/ml Total Protein 7.8 (6.4-8.2) gm/dl Albumin 4.0 (3.4-5.0) gm/dl Globulin 3.8 (2.5-4.0) gm/dl Albumin/Globulin Ratio 1.1 (0.9-2) Lipase 78 (73-393) U/L Carbamazepine 10.9 (4-12) mcg/ml Imaging Data Radiologist's Impression: Radiology results as stated below per my review and the radiologist's interpretation: CT abd pelvis IV con only CLINICAL HISTORY: 73 years-old Male presenting with possible obstruction, history of Parkinson's disease. TECHNIQUE: Multidetector CT of the abdomen and pelvis was performed after the administration of intravenous contrast. IV contrast: 90 mL of Optiray 320. One or more dose lowering techniques were used consistent with the principles of ALARA (as low as reasonably achievable), including automatic exposure control, mA or kV adjustment to individual patient size, and/or use of iterative reconstruction. COMPARISON: 08/05/2018. CT DOSE (mGy.cm): The estimated cumulative dose is 256.67 mGy.cm. FINDINGS: Behavioral Health Director topogram: Unremarkable. Motion artifact degradation from the patient's tremors results in moderate image quality degradation and moderately limited diagnostic sensitivity. Lung bases: Aortic valve and mitral annular calcification. Normal heart size. No pericardial or pleural effusion. No focal infiltrate or nodule at the lung bases. Liver: Congenital hypoplasia of the medial segments of the left hepatic lobe. No focal lesion. Patent hepatic vasculature. Biliary: No intrahepatic or extrahepatic biliary ductal dilatation. Normal gallbladder. Pancreas: Normal. Spleen: Normal. Adrenal glands: Normal. Kidneys and ureters: Exophytic dominant simple cyst in the right kidney. Kidneys otherwise normal. Bladder: Incompletely evaluated secondary to underdistention. Pelvic organs: Prostate enlargement likely secondary to benign prostatic h yperplasia. Bowel: The rectum is moderately distended with liquid stool suggesting a diarrheal state. The colon is diffusely mildly distended with fluid and gas. There may be wall thickening in the ascending colon though this is not well delineated. No bowel obstruction. Small bowel wall thickening is suggested in the proximal ileum in the left mid abdomen. Trace hiatal hernia. Peritoneal cavity: No free fluid or intraperitoneal gas. Lymph nodes: No enlarged lymph nodes in the abdomen or pelvis. Vasculature: Atherosclerosis of the normal caliber abdominal aorta. IVC patent. Abdominal wall: Normal. Musculoskeletal: Degenerative changes of the spine. IMPRESSION: Motion artifact degradation from the patient's tremors results in moderate image quality degradation and moderately limited diagnostic sensitivity. 1. Fluid throughout the large bowel is evidence of a diarrheal state. There is also suggestion of proximal small bowel wall thickening. This could represent mild enterocolitis. No bowel obstruction. Electronically signed by: Isaias Ojeda M.D. 06/03/2019 8:40 PM ECG Data Attestation: I personally reviewed and interpreted this ECG as follows: Indication: abdominal pain Rate (beats per minute): 61 Rhythm: other (Rhythm appears to be sinus rhythm) Findings: + other (significant artifact present) and + LBBB; no PVC and no ST elevation (obvious) Comparison ECG Date: from (08/05/18) Change: the following changes noted Additional Comments: Artifact is newly present and the LBBB is newly present Blood Pressure Blood Pressure Findings: Low blood pressure Blood Pressure Disposition: further management by hospitalist MDM Narrative There is a moderate leukocytosis at 15,000, this could be consistent with infection or just his pain. No worrisome anemia. No significant electrolyte abnormality or kidney failure. No worrisome liver enzyme elevation. No evidence for pancreatitis. Abdominal and pelvis CT shows potentially an ileus. There are some air-fluid levels in the colon. No true bowel obstruction, no abscess, no free air. There was some enterocolitis suspected. The patient received IV saline, he was given his typical dose of Sinemet orally. He did not require anything for pain. The patient requires a stay in the hospital. His presentation today is similar to his presentation last year which required eventual surgical intervention. Right now, he does not seem toxic, there was no peritonitis, he seems to be resting fairly comfortably. Hopefully, this issue will self resolve. He is currently n.p.o. This illness may be foodborne and/or viral. Bowel rest is required. I did speak to the patient, I talked with the rn field case manager. The on-call hospitalist was consulted. Impression & Plan Ileus, Nausea, Leukocytosis, Diffuse abdominal pain Discharge Plan Visit Data *Final* Discharge Date/Time: 06/03/19 23:05 Chief Complaint: GI Assessment Stated Complaint: BOWEL OBSTRUCTION ED Provider: Shiv Riley Discharge Problem: Ileus, Nausea, Leukocytosis, Diffuse abdominal pain Patient Disposition: Admitted As Inpatient Discharge Instructions Interventions: ED Discharge Assessment Last Done: 06/03/19 23:05 Discharge Problem: Leukocytosis Qualifiers: Leukocytosis type: unspecified Qualified Code(s): D72.829 - Elevated white blood cell count, unspecified The scribe's documentation has been prepared under my direction and personally reviewed by me in its entirety. I confirm that the note above accurately reflects all work, treatment, procedures, and medical decision making performed by me.
--- NOTE | 2019-06-04 15:35 | Discharge Summary ---
Date of Service June 04, 2019 Admission HPI Per Admitting Provider The patient is a 73-year-old male with a past medical history significant for volvulus, who presents emergency department with persistent abdominal discomfort with loose stools. His work-up in the emergency department included a CT scan of abdomen pelvis, which showed a fluid-filled colon, consistent with enterocolitis. However, because of his significant history of volvulus, the recommendation is to admit the patient for observation overnight. Upon questioning, the patient does report that he did eat out a couple days before he became sick, but he reports that they were at [address] where he has frequented in the past, and does not know if there is a single food that might of been a problem. Principal Diagnosis Enteritis Discharge Exam Constitutional WD/WN, vitals as above Respiratory normal respiratory effort, lungs clear to auscultation Cardiovascular RRR, no murmur, no edema Gastrointestinal (Abdomen) Inspection/Auscultation: abdomen normal to inspection and normal bowel sounds; abdomen not distended Percussion/Palpation: + abdomen tender (mild tenderness to palpation) and abdomen soft Musculoskeletal no cyanosis or clubbing, extremities motor strength 5/5 Skin no rashes, warm and dry Neurologic moves all extremities and awake Psychiatric A+Ox3, euthymic affect Discharge Data Allergies Allergy/AdvReac Type Severity Reaction Status Date / Time No Known Allergies Allergy Verified 06/03/19 13:26 Consultations 06/03/19 21:13 ED Decision to Admit Stat 06/03/19 23:38 Consult Case Management - Discharge Planning Routine Ordered Studies 06/03/19 18:56 CT abd pelvis IV con only Stat Hospital Course (1) Enterocolitis: Generalized abdominal pain/enterocolitis/ileus- Ordered stool culture and C. difficile however patient has not had any bowel movement since over the night in the ED. He had been having constipation and then some diarrhea previous to ED visit. He said that he usually takes miralax daily and was dependent on it for bowel movements but had not been taking it regularly over the last few days. Patient was admitted due to history of volvulus requiring procedures in the past. His CT showed: Fluid throughout the large bowel is evidence of a diarrheal stat e. There is also suggestion of proximal small bowel wall thickening. This could represent mild enterocolitis. No bowel obstruction. Full liquid diet was well tolerated Today he is symptom free, no abdominal pain, no diarrhea or nausea. Had long discussion with patient and his concerning discharge. He does have a WBC count of 15 however he has no lingering symptoms and feels back to his normal state. He has had a bowel movement since coming to the ED. He is eating and drinking. We discussed that he could either stay overnight tonight for monitoring and recheck labs in the morning or if he felt comfortable with self monitoring, he could return home with the caveat that he come back to the ED if any symptoms recur. Mr. Talbert and is both verbalized that they would prefer he go home and will return if he has any symptoms such as abdominal pain, fever, aches, chills, nausea, vomiting, diarrhea. Mr. Talbert and his are planning to travel this coming week and asked if that was advisable. I did recommend seeing their primary care provider before leaving if possible. Primary care provider could consider rechecking WBCs for resolution on follow up. (2) Diffuse abdominal pain: See above (3) Ileus: See above (4) Parkinsons disease: Continue carbidopa levodopa (5) Dyslipidemia: Continue atorvastatin (6) Seizure, epileptic: Seizure disorder/anxiety with depression- Continue buspirone, carbamazepine, fluoxetine, sertraline. (7) Depression with anxiety: See above (8) Hyperactive airway disease: Continue Symbicort and pro-air HFA. (9) Hypertension: Hypertension/hypertrophic cardia myopathy/aortic stenosis- Continue carvedilol 6.25 mg p.o. twice daily with hold parameters, and aspirin. Hold furosemide as needed (10) Cardiomyopathy, hypertrophic: See above Total Time Total Time Spent Total Time Spent (In Minutes): greater than 30 minutes Discharge Plan Discharge Items Patient Disposition: Home - Self-Care Reason For Visit: BOWEL OBSTRUCTION Discharge Diagnosis: Enteritis Discharge Goals: Decrease discomfort Activity: Resume your previous activity Non-emergency contact: Primary Care Provider Call non-emergency contact if: you have any medication questions, your symptoms worsen, your pain is not controlled, your pain is worsening and you have a fever Follow-up/Referrals: Geraldine Zaman, [Primary Care Provider] - Diet: Full liquid Addtl Provider Instructions: Please see your primary care provider early next week. You can advance your diet as tolerated starting with full liquids and then progressing to a low fiber diet and then you usual diet. You should return to the ED or call your primary care provider if you have any return of pain, nausea, vomiting, diarrhea, fever, aches or chills or any other symptoms of concern. Discuss with your primary care provider whether they feel you should have follow up blood work to monitor for resolution of your white blood cell count. Prescriptions: Continued cholecalciferol (vitamin D3) 2,000 unit capsule 2,000 units PO DAILY Qty: 30 RF: 0 tamsulosin [Flomax] 0.4 mg capsule 0.4 mg PO QPM Qty: 90 RF: 1 fluoxetine 20 mg capsule 20 mg PO DAILY 90 Days Qty: 90 RF: 3 buspirone 10 mg tablet 20 mg PO AMHS RF: 0 atorvastatin [Lipitor] 40 mg Tablet 40 mg PO HS RF: 0 carvedilol [Coreg] 6.25 mg Tablet 6.25 mg PO BID RF: 0 aspirin [Aspirin Low Dose] 81 mg Tablet,Delayed Release (Dr/Ec) 81 mg PO DAILY RF: 0 omeprazole 20 mg Capsule,Delayed Release(Dr/Ec) 20 mg PO DAILY RF: 0 polyethylene glycol 3350 [Miralax] 17 gram/dose Powder 34 g PO DAILY PRN (Reason: Constipation) RF: 0 albuterol sulfate [ProAir HFA] 90 mcg/actuation Hfa Aerosol Inhaler 1 - 2 puff INHALATION Q6 PRN (Reason: Shortness Of Breath) RF: 0 carbidopa-levodopa 25-100 mg Tablet 2.5 tab PO 5XD RF: 0 Symbicort 80-4.5 mcg/actuation Hfa Aerosol Inhaler 2 puff INHALATION QAM RF: 0 melatonin 5 mg Tablet 10 mg PO HS PRN (Reason: Sleep) RF: 0 furosemide [Lasix] 20 mg Tablet 20 mg PO DAILY PRN (Reason: Fluid Retention) RF: 0 sennosides-docusate sodium [Senna with Docusate Sodium] 8.6-50 mg Tablet 2 tab PO BID RF: 0 buspirone 10 mg tablet 10 mg PO DAILYBL RF: 0 sertraline 50 mg tablet 100 mg PO DAILY RF: 0 carbamazepine 300 mg capsule, ER multiphase 12 hr 300 mg PO BID RF: 0 acetaminophen [Tylenol Extra Strength] 500 mg Tablet 1,000 mg PO Q6H PRN (Reason: Pain) RF: 0 ondansetron [Zofran ODT] 4 mg Tablet,Disintegrating 4 mg PO Q6 PRN (Reason: Nausea) RF: 0 Stand-Alone Forms: [facility] Discharge Orders: Discharge Order (Routine); Ordered 06/04/19 Ordered By: Dot Beltran Admission Data Admit Date/Time: 06/03/19 22:16 Attending Provider: Todd Rebolledo Admit Provider: Neftali Gross Primary Care Provider: Geraldine Zaman Other Providers: Todd Rebolledo Service: Medical
[2019-06-04] MEDS ORDERED: ATORVASTATIN 40 MG TAB PO SCH (21:00)
[2019-06-04] MEDS ORDERED: TAMSULOSIN HCL 0.4 MG CAP PO SCH (21:00)
== END 2019-06-04 16:35 | disposition home or self-care (01) ==
LOC: ED 17:24 → 3N 17:24 → SUATTDRO 22:16 → 3N 23:05

== ENCOUNTER 2023-01-30 09:13 | Inpatient (IN) ==
[2023-01-30] MEDS ORDERED: ONDANSETRON INJ 2 MG/ML 2 ML VIAL IV STA (09:55)
[2023-01-30] MEDS ORDERED: SODIUM CHLORIDE 0.9% 1000ML 1,000 ML IV STA (09:55)
[2023-01-30 10:36] LABS: Hematocrit (blood only) 36.9 % (42.0-52.0); Hemoglobin 12.7 g/dl (14.0-18.0); Mean Corpuscular Hemoglobin 30.5 pg (25.0-34.0); Mean Corpuscular Hgb Conc 34.4 g/dL (32.0-36.0); Mean Corpuscular Volume 88.7 fL (80.0-100.0); Mean Platelet Volume 11.2 fL (9.4-12.4); Platelet Count 192 K/uL (130-400); RDW Coefficient of Variation 14.9 % (11.5-14.5); RDW Standard Deviation 47.8 fL (36.4-46.3); Red Blood Count 4.16 M/uL (4.70-6.10); White Blood Count 14.17 K/ul (4.8-10.8)
[2023-01-30 10:59] LABS: Basophils # (auto) 0.02 K/uL (0-0.2); Basophils % (auto) 0.1 %; Immature Granulocytes # (auto) 0.05 K/uL (0.01-0.20); Immature Granulocytes % (auto) 0.4 %; Lymphocytes # (auto) 0.39 K/uL (1.2-3.4); Lymphocytes % (auto) 2.8 %; Monocytes # (auto) 0.71 K/uL (0.11-0.59); Neutrophils % (auto) 91.7 %
--- NOTE | 2023-01-30 10:59 | XRay Report ---
SINGLE VIEW CHEST CLINICAL HISTORY: Generalized abdominal pain. FINDINGS: An AP, portable, upright chest radiograph is compared to study dated 04/09/2012 and correlat ed with chest CT dated 08/01/2018. The examination is degraded by portable technique and apical positi oning. The patient is status post midline sternotomy. The heart is enlarged noting atherosclerotic ca lcification of the thoracic aorta. The pulmonary vasculature is noncongested. Mild airspace opacities are seen in the right mid to lower lung. Scarring/atelectasis is noted at the lung bases. No large p leural effusion or pneumothorax is identified. The skeletal structures are osteopenic. The bony thora x is grossly intact. IMPRESSION: 1. Cardiomegaly without radiographic evidence of congestive failure. 2. Mild airspace opacities are seen in the right mid to lower lung. Correlate clinically for evidence of a mild pneumonitis. Radiographic follow-up to resolution is recommended. ACT 112: Negative or not required by law. Electronically signed by: Shiv Hernadez M.D. 01/30/2023 10:57 AM
[2023-01-30 11:02] LABS: Alanine Aminotransferase 4 U/L (7-52); Albumin Globulin Ratio 1.2 (0.9-2); Albumin Level 3.7 gm/dl (3.4-5.0); Alkaline Phosphatase 113 U/L (34-104); Anion Gap 7 (3-11); BUN Creatinine Ratio 33.3 (10-20); Bilirubin,Total 0.9 mg/dl (0.2-1.0); Blood Urea Nitrogen 37 mg/dl (6-23); Calcium 8.2 mg/dl (8.6-10.3); Carbon Dioxide 22 mmol/L (21-32); Chloride 108 mmol/L (98-107); Creatinine Clr Calc Pharmacy 50.8 ml/min; Est GFR (African American) 74.4 ml/min; Est GFR (Non-African American) 64.2 ml/min; Glucose 96 mg/dl (70-99(Fasting)); Lipase 6 U/L (11-82); Sodium 137 mmol/L (136-145); Total Protein 6.7 gm/dl (6.0-8.3); Troponin I High Sensitivity 182.7 pg/ml (0-20)
[2023-01-30] MEDS ORDERED: CEFEPIME 2,000 MG/20 ML VIAL IV STA (11:02)
[2023-01-30] MEDS ORDERED: ACETAMINOPHEN 1,000 MG/100 ML VIAL IV STA (11:12)
--- NOTE | 2023-01-30 11:12 | Emergency Department Note ---
Impression & Plan Pneumonia, Acute dehydration, Leukocytosis, Abdominal distension, Fecal impaction ED Provider Note NAME: TRAVIS OLMSTEAD AGE: 77 SEX: M : 1945 ARRIVES VIA: Ambulance INFORMANT: [Patient][family] ED PROVIDER(S): [Shiv Riley MD] CHIEF COMPLAINT: Constipation, possible obstruction HISTORY OF PRESENT ILLNESS: The patient is a 77-year-old male who has had about 5 days of difficulty moving his bowels and some abdominal distention. He has had some occasional nausea and vomiting. Patient saw his doctor's office yesterday and had a work-up done. He was called and told to report to the ED for a bowel obstruction. Patient currently denies any pain. He does not necessarily feel short of breath. As per his family, he has been coughing quite a bit lately. The patient has had a previous bowel obstruction. He states he does not think he has had a good bowel movement in 3 or 4 days. PMHx/PSHx: See Below SOCIAL HISTORY: See Below. PHYSICAL EXAM: GENERAL: Patient is in no acute distress. HEENT: No acute trauma, normocephalic atraumatic, mucous membranes dry, no nasal congestion. NECK: No stridor, no adenopathy, no meningismus, trachea is midline. LUNGS: Coarse breath sounds bilaterally, no wheezing, no respiratory distress. HEART: 3/6 to 4/6 systolic murmur heard best at the right sternal border. Regular rate and rhythm ABDOMEN: Soft, nontender abdomen. His abdomen is distended with tympany to percussion. EXTREMITIES: No cyanosis, full range of motion of all the joints without pain or difficulty, no signs for acute trauma. NEUROLOGIC: Awake and alert, moves all extremities, poor historian. SKIN: No rash, no jaundice, no diaphoresis. DIFFERENTIAL DIAGNOSIS: Bowel obstruction, constipation, dehydration, electrolyte imbalance, pneumonia, UTI, viral illness, among others. EMERGENCY DEPARTMENT COURSE/PROCEDURES: Prior/Outside records reviewed: EMS notes. ECG per my interpretation: Indication was possible sepsis. The ECG shows a sinus rhythm with a first-degree AV block. The rate is 73. There is a left bundle branch block. No PVCs. No concerning ST elevation. QTc is 513. Continuous Cardiac Monitoring per my interpretation: An order was placed for continuous cardiac monitoring. The monitor shows a rate of 74 with normal sinus rhythm. Critical Care Note: I have personally spent 52 minutes of critical care time in the direct management of this patient. This includes bedside care, interpretation of diagnostic studies, and testing, discussion with consultants, patient, and family members, and other required patient management activities. This 52 minutes is in excess of all separately billable procedures. MEDICAL DECISION MAKING: There is a moderate leukocytosis, this could be consistent with infection. A mild anemia was seen, this is baseline looking back at previous testing. There is a normal platelet count. No renal failure or significant electrolyte abnormality. Alk phos slightly elevated, the remaining liver enzymes were unremarkable. There is no evidence for pancreatitis. ECG showed a sinus rhythm with a first-degree AV block. No obvious acute ischemia. Cardiac enzyme testing x1 is slightly elevated. This elevation could be secondary to cardiac injury versus mismatch. Chest film per my review shows a right lung pneumonia. No pneumothorax. Abdominal and pelvis CT shows colonic air as well as a fecal impaction, no small bowel obstruction. On exam, the patient had coarse breath sounds. He appeared dehydrated. His abdomen was distended but nontender. The patient received IV Tylenol for his low-grade fever. He was given a DuoNeb, IV cefepime, IV Zofran, IV saline. He was ordered for a glycerin suppository. The patient appears to have pneumonia. This is the primary concern. He does have a fecal impaction which has caused some colonic distention. He does not have a small bowel obstruction. He appears dehydrated clinically. Patient is in need of a hospital stay. I did speak with him as well as to his family. I spoke with case management, the on-call hospitalist was consulted. DISPOSITION: The patient's presentation and findings warrant a hospital stay. Past Med/Surg History Medical History Allergic rhinitis Anemia no known hx blood transfusion Aortic stenosis Moderate aortic stenosis with mild to moderate AR (YASMIN 1.9 to 2.0 cm. Mean gradient 22.8 mmHg) per 08/2018 ECHO Aortic stenosis Aspiration pneumonia BPH (benign prostatic hyperplasia) CAD (coronary artery disease) Cardiomyopathy, hypertrophic Carotid atherosclerosis Chronic constipation Constipation, chronic Depression Depression with anxiety Dyslipidemia Epilepsy GERD (gastroesophageal reflux disease) Hyperactive airway disease Hypertension per records/patient denies Hypertrophic cardiomyopathy LBBB (left bundle branch block) dating back to at least 05/2019 EKG Mild cognitive impairment Mitral and aortic regurgitation Mitral regurgitation Orthostatic hypotension occasional Parkinson's disease Parkinsons disease Pneumonia Prediabetes 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 Last seizure months ago with ?seizure episode 10/27/19 (suspected may have been r/t lightheadedness/orthostasis with standing) Small bowel obstruction Urinary incontinence Vitamin B12 deficiency Vitamin D deficiency Volvulus hx Surgical History History of colonoscopy History of esophagogastroduodenoscopy (EGD) History of open sigmoidectomy (05/2018) History of tonsillectomy S/P aortic valve and mitral valve replacement (05/26/21) S/P hernia repair (10/2019) S/P percutaneous endoscopic gastrostomy (PEG) tube placement (07/08/21) [place] teeth extracted Family History Mother , age 68 of ovarian cancer. Ovarian cancer Colorectal cancer Father , age 83 with congestive heart failure and had Parki nson's disease since age 70. CHF (congestive heart failure) Parkinson disease Uncle Myocardial infarction Uncle Myocardial infarction Son Diabetes Other Coronary heart disease Hypertension Denies family history of Breast cancer Lung cancer Social History Smoking Status: Unknown if ever smoked Second Hand Exposure: Yes; Do You Dip or Chew Tobacco: No; Hx Alcohol Use: Yes Alcohol type: beer Alcohol Intake Frequency: 4 or More x per/Week Hx Substance Use: No Preferred Language: Persian Communication Ability: Effective Visual Impairment: No Limitations Hearing Ability: Use of Hearing Aid Fabricator Artificial Breast Required: No Beliefs That Will Affect Care: None marital status: Current Living Situation: Spouse current occupational status: retired other: 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 Feels Safe at Home: Yes Childhood Exposure to Second-Hand Smoke: Yes Diet: regular Diet Comment: regular caffeine: Yes during the past year weight has: increased > 10 lbs Dental Care, Regularly: Yes Physical Activity Frequency: Daily Physical Activity Frequency Comment: walking ,exercise bike Seatbelt Use: always Sunscreen Use: No Assistive Devices: Glasses Allergies Allergies Allergy/AdvReac Type Severity Reaction Status Date / Time No Known Drug Allergies Allergy Unknown Verified 01/30/23 12:45 Home Meds Home Medications Medication Instructions Recorded Confirmed fluoxetine 40 mg capsule 40 mg PO QAM 05/19/21 01/30/23 aspirin 81 mg tablet,delayed 81 mg PO QAM 12/19/21 01/30/23 release (Shiva Low Dose Aspirin) buspirone 10 mg tablet 10 mg PO BID 12/19/21 01/30/23 omeprazole 20 mg capsule,delayed 20 mg PO HS 09/18/22 01/30/23 release CBD Gummies 2 tab PO DAILY 01/28/23 01/30/23 carbidopa 25 mg-levodopa 100 mg See Rx Instructions PO .COMPLEX 01/28/23 01/30/23 tablet ondansetron 4 mg disintegrating 4 mg PO Q8H PRN Nausea 01/28/23 01/30/23 tablet polyethylene glycol 3350 17 gram 8.5 g PO DAILY 01/28/23 01/30/23 oral powder packet (Miralax) ropinirole 1 mg tablet See Rx Instructions .Route .COMPLEX 01/28/23 01/30/23 guar gum 0 tbsp PO DAILY 01/30/23 01/30/23 Previous Rx's Medication Instructions Recorded fluticasone furoate 100 1 inh inhalation DAILY #60 ea 03/22/22 mcg-vilanterol 25 mcg/dose inhalation powder (Breo Ellipta) albuterol sulfate 90 mcg/actuation 2 puff inhalation Q8H PRN 04/26/22 aerosol inhaler shortness of breath or wheezing #18 grams tamsulosin 0.4 mg capsule (Flomax) 0.4 mg PO DAILY #90 caps 05/11/22 albuterol sulfate 2.5 mg/3 mL 2.5 mg (3 mL) inhalation QID PRN 07/30/22 (0.083 %) solution for nebulization shortness of breath or wheezing #180 mL compressor, for nebulizer #1 ea 07/30/22 famotidine 20 mg tablet 20 mg PO DAILY #90 tabs 09/07/22 fluticasone propionate 50 1 spray intranasal BID #48 grams 10/18/22 mcg/actuation nasal spray,suspension atorvastatin 40 mg tablet 40 mg PO Q OTHER DAY #45 tabs 11/15/22 carbamazepine 300 mg 300 mg PO BID #60 caps 11/15/22 capsule,extended release [id number] Results & Data (ED) Vital Signs Vital Signs - 24 hr 01/30/23 09:24 01/30/23 09:55 01/30/23 11:07 Temperature 38 C H Temperature Source Oral Pulse Rate 66 74 Pulse Rate from SpO2 Sensor Respiratory Rate 18 19 Respiratory Effort / Characteristics Non-Labored Respiratory Depth Normal Blood Pressure 112/61 Blood Pressure Mean 78 Blood Pressure Position Semi-fowlers Pulse Oximetry 90 93 Oxygen Delivery Method Room Air Room Air Oxygen Flow Rate Sepsis Recent Fever Within 48 Hours No Sepsis New/Unexplained Change in Mental Status No Sepsis Action Taken by Nursing No Action Required 01/30/23 09:35 01/30/23 10:00 01/30/23 10:30 Temperature Temperature Source Pulse Rate 67 65 66 Pulse Rate from SpO2 Sensor 67 65 66 Respiratory Rate 22 24 23 Respiratory Effort / Characteristics Respiratory Depth Blood Pressure Blood Pressure Mean Blood Pressure Position Pulse Oximetry 90 91 91 Oxygen Delivery Method Oxygen Flow Rate Sepsis Recent Fever Within 48 Hours Sepsis New/Unexplained Change in Mental Status Sepsis Action Taken by Nursing 01/30/23 11:00 01/30/23 11:30 01/30/23 12:28 Temperature 37.3 C Temperature Source Oral Pulse Rate 67 73 Pulse Rate from SpO2 Sensor 67 73 Respiratory Rate 20 20 Respiratory Effort / Characteristics Respiratory Depth Blood Pressure Blood Pressure Mean Blood Pressure Position Pulse Oximetry 91 91 Oxygen Delivery Method Oxygen Flow Rate Sepsis Recent Fever Within 48 Hours Sepsis New/Unexplained Change in Mental Status Sepsis Action Taken by Nursing 01/30/23 12:00 01/30/23 12:28 01/30/23 12:28 Temperature Temperature Source Pulse Rate 67 71 Pulse Rate from SpO2 Sensor 67 71 Respiratory Rate 19 23 Respiratory Effort / Characteristics Respiratory Depth Blood Pressure 106/60 Blood Pressure Mean 75 Blood Pressure Position Pulse Oximetry 90 91 Oxygen Delivery Method Oxygen Flow Rate Sepsis Recent Fever Within 48 Hours Sepsis New/Unexplained Change in Mental Status Sepsis Action Taken by Nursing 01/30/23 12:30 01/30/23 12:30 01/30/23 13:00 Temperature Temperature Source Pulse Rate 78 Pulse Rate from SpO2 Sensor 77 Respiratory Rate 18 Respiratory Effort / Characteristics Respiratory Depth Blood Pressure 113/61 90/51 L Blood Pressure Mean 78 64 Blood Pressure Position Pulse Oximetry 91 Oxygen Delivery Method Oxygen Flow Rate Sepsis Recent Fever Within 48 Hours Sepsis New/Unexplained Change in Mental Status Sepsis Action Taken by Nursing 01/30/23 13:00 Temperature Temperature Source Pulse Rate 63 Pulse Rate from SpO2 Sensor 63 Respiratory Rate 17 Respiratory Effort / Characteristics Respiratory Depth Blood Pressure Blood Pressure Mean Blood Pressure Position Pulse Oximetry 93 Oxygen Delivery Method Nasal Cannula Oxygen Flow Rate 2 Sepsis Recent Fever Within 48 Hours Sepsis New/Unexplained Change in Mental Status Sepsis Action Taken by Detention Medications Current Medication List: was personally reviewed by me Laboratory Data Attestation: I reviewed the patient's lab results. 01/30/23 09:55 01/30/23 09:55 Lab Results 01/30/23 01/30/23 01/30/23 Range/Units 09:55 09:55 11:09 WBC 14.17 H (4.8-10.8) K/ul RBC 4.16 L (4.70-6.10) M/uL Hgb 12.7 L (14.0-18.0) g/dl Hct 36.9 L (42.0-52.0) % MCV 88.7 (80.0-100.0) fL MCH 30.5 (25.0-34.0) pg MCHC 34.4 (32.0-36.0) g/dL RDW Std Deviation 47.8 H (36.4-46.3) fL RDW Coeff of [place] 14.9 H (11.5-14.5) % Plt Count 192 (130-400) K/uL MPV 11.2 (9.4-12.4) fL Immature Gran % (Auto) 0.4 % Neut % (Auto) 91.7 % Lymph % (Auto) 2.8 % [place] % (Auto) 5.0 % Eos % (Auto) 0.0 % Baso % (Auto) 0.1 % Neut # (Auto) 13.00 H (1.40-6.50) K/uL Lymph # (Auto) 0.39 L (1.2-3.4) K/uL [place] # (Auto) 0.71 H (0.11-0.59) K/uL Eos # (Auto) 0.00 (0-0.50) K/uL Baso # (Auto) 0.02 (0-0.2) K/uL Immature Gran # (Auto) 0.05 (0.01-0.20) K/uL Sodium 137 (136-145) mmol/L Potassium TNP Chloride 108 H (98-107) mmol/L Carbon Dioxide 22 (21-32) mmol/L Anion Gap 7 (3-11) BUN 37 H (6-23) mg/dl Creatinine 1.11 (0.6-1.4) mg/dl Est Cr Clr Drug Dosing 50.8 ml/min Est GFR ( Amer) 74.4 ml/min Est GFR (Non-Af Amer) 64.2 ml/min BUN/Creatinine Ratio 33.3 H (10-20) Glucose 96 (70-99(Fasting)) mg/dl Lactate (0.4-2.0) mmol/L Calcium 8.2 L (8.6-10.3) mg/dl Total Bilirubin 0.9 (0.2-1.0) mg/dl AST TNP ALT 4 L (7-52) U/L Alkaline Phosphatase 113 H (34-104) U/L Troponin I High Sens 182.7 H* (0-20) pg/ml Total Protein 6.7 (6.0-8.3) gm/dl Albumin 3.7 (3.4-5.0) gm/dl Globulin 3.0 (2.5-4.0) gm/dl Albumin/Globulin Ratio 1.2 (0.9-2) Lipase 6 L (11-82) U/L Urine Color Urine Appearance (Clear) Urine pH (4.5-7.5) Ur Specific [place] (1.000-1.030) Urine Protein (Negative) Urine Glucose (UA) (Negative) Urine Ketones (Negative) Urine Blood (Negative) Urine Nitrite (Negative) Urine Bilirubin (Negative) Urine Urobilinogen (Negative) Ur Leukocyte Esterase (Negative) Adenovirus (PCR) Not Detected (NotDetected) B. pertussis DNA (PCR) Not Detected (NotDetected) B.parapertussis DNA PCR Not Detected (NotDetected) C. pneumoniae DNA (PCR) Not Detected (NotDetected) Coronavirus OC43 (PCR) Not Detected (NotDetected) Coronavirus HKU1 (PCR) Not Detected (NotDetected) Coronavirus 229E (PCR) Not Detected (NotDetected) SARS-CoV-2 (PCR) Not Detected (NotDetected) Coronavirus NL63 (PCR) Not Detected (NotDetected) Human Metapneumovir PCR Not Detected (NotDetected) Influenza Type A (PCR) Not Detected (NotDetected) Influenza Type B (PCR) Not Detected (NotDetected) M. pneumoniae (PCR) Not Detected (NotDetected) Parainfluenza 1 (PCR) Not Detected (NotDetected) Parainfluenza 2 (PCR) Not Detected (NotDetected) Parainfluenza 3 (PCR) Not Detected (NotDetected) Parainfluenza 4 (PCR) Not Detected (NotDetected) RSV (PCR) Not Detected (NotDetected) Entero/Rhino (PCR) Not Detected (NotDetected) 01/30/23 01/30/23 Range/Units 11:24 12:37 WBC (4.8-10.8) K/ul RBC (4.70-6.10) M/uL Hgb (14.0-18.0) g/dl Hct (42.0-52.0) % MCV (80.0-100.0) fL MCH (25.0-34.0) pg MCHC (32.0-36.0) g/dL RDW Std Deviation (36.4-46.3) fL RDW Coeff of [place] (11.5-14.5) % Plt Count (130-400) K/uL MPV (9.4-12.4) fL Immature Gran % (Auto) % Neut % (Auto) % Lymph % (Auto) % [place] % (Auto) % Eos % (Auto) % Baso % (Auto) % Neut # (Auto) (1.40-6.50) K/uL Lymph # (Auto) (1.2-3.4) K/uL [place] # (Auto) (0.11-0.59) K/uL Eos # (Auto) (0-0.50) K/uL Baso # (Auto) (0-0.2) K/uL Immature Gran # (Auto) (0.01-0.20) K/uL Sodium (136-145) mmol/L Potassium Chloride (98-107) mmol/L Carbon Dioxide (21-32) mmol/L Anion Gap (3-11) BUN (6-23) mg/dl Creatinine (0.6-1.4) mg/dl Est Cr Clr Drug Dosing ml/min Est GFR ( Amer) ml/min Est GFR (Non-Af Amer) ml/min BUN/Creatinine Ratio (10-20) Glucose (70-99(Fasting)) mg/dl Lactate 1.2 (0.4-2.0) mmol/L Calcium (8.6-10.3) mg/dl Total Bilirubin (0.2-1.0) mg/dl AST ALT (7-52) U/L Alkaline Phosphatase (34-104) U/L Troponin I High Sens (0-20) pg/ml Total Protein (6.0-8.3) gm/dl Albumin (3.4-5.0) gm/dl Globulin (2.5-4.0) gm/dl Albumin/Globulin Ratio (0.9-2) Lipase (11-82) U/L Urine Color Dark Yellow Urine Appearance Clear (Clear) Urine pH 5.0 (4.5-7.5) Ur Specific [place] > 1.045 H (1.000-1.030) Urine Protein Negative (Negative) Urine Glucose (UA) Negative (Negative) Urine Ketones 1+ H (Negative) Urine Blood Negative (Negative) Urine Nitrite Negative (Negative) Urine Bilirubin Negative (Negative) Urine Urobilinogen Negative (Negative) Ur Leukocyte Esterase Negative (Negative) Adenovirus (PCR) (NotDetected) B. pertussis DNA (PCR) (NotDetected) B.parapertussis DNA PCR (NotDetected) C. pneumoniae DNA (PCR) (NotDetected) Coronavirus OC43 (PCR) (NotDetected) Coronavirus HKU1 (PCR) (NotDetected) Coronavirus 229E (PCR) (NotDetected) SARS-CoV-2 (PCR) (NotDetected) Coronavirus NL63 (PCR) (NotDetected) Human Metapneumovir PCR (NotDetected) Influenza Type A (PCR) (NotDetected) Influenza Type B (PCR) (NotDetected) M. pneumoniae (PCR) (NotDetected) Parainfluenza 1 (PCR) (NotDetected) Parainfluenza 2 (PCR) (NotDetected) Parainfluenza 3 (PCR) (NotDetected) Parainfluenza 4 (PCR) (NotDetected) RSV (PCR) (NotDetected) Entero/Rhino (PCR) (NotDetected) Administered Medications Sodium Chloride (Nss 1000ml) 500 mls @ 999 mls/hr IV .Q31M ONE Stop: 01/30/23 13:42 Last Admin: 01/30/23 13:33 Dose: 999 mls/hr Documented By: DUONG Discontinued Medications Albuterol (Albut/Ipratrop 3mg/0.5mg Neb 3 Ml Vial) 3 ml NEB NOW STA; Protocol Stop: 01/30/23 12:59 Last Admin: 01/30/23 13:35 Dose: 3 ml Documented By: DUONG Glycerin (Glycerin Adult 12 Supp/Box Supp) 1 supp LA NOW ONE Stop: 01/30/23 13:01 Last Admin: 01/30/23 13:31 Dose: 1 supp Documented By: DUONG Sodium Chloride (Nss 1000ml) 1,000 mls @ 999 mls/hr IV .Q1H1M STA Stop: 01/30/23 10:55 Last Infusion: 01/30/23 12:02 Dose: 0 mls/hr Documented By: Admin: 01/30/23 10:29 Dose: 999 mls/hr Documented By: AFSHAN Cefepime HCl (Maxipime) 2,000 mg in 20 mls @ 5 mls/min IV NOW STA; Protocol Stop: 01/30/23 11:05 Last Admin: 01/30/23 11:35 Dose: 5 mls/min Documented By: DUONG Acetaminophen (Ofirmev) 1,000 mg in 100 mls @ 400 mls/hr IV NOW STA Stop: 01/30/23 11:26 Last Infusion: 01/30/23 12:02 Dose: 0 mls/hr Documented By: Admin: 01/30/23 11:38 Dose: 400 mls/hr Documented By: DUONG Ioversol (Optiray 320 100ml) 88 ml IV ONCE ONE Stop: 01/30/23 12:24 Last Admin: 01/30/23 12:16 Dose: 88 ml Documented By: BRM Ondansetron HCl (Ondansetron Inj 2 Mg/Ml 2 Ml Vial) 4 mg IV NOW STA Stop: 01/30/23 09:56 Last Admin: 01/30/23 10:29 Dose: 4 mg Documented By: AFSHAN Imaging Data Radiologist's Impression: Abdomen/Pelvis CT 01/30/23 09:55 CT SCAN OF THE ABDOMEN AND PELVIS WITH IV CONTRAST CLINICAL HISTORY: Generalized abdominal pain. Fever. COMPARISON STUDY: Abdominal CT dated 01/29/2023, 01/15/2012, and 09/24/2020. TECHNIQUE: Following the IV administration of 88 cc of Optiray 320, CT scan of the abdomen and pelvis is performed from the lung bases to the proximal femora. Images are reviewed in the axial, sagittal, and coronal planes. IV contrast was administered without complication. A dose lowering technique was utilized adhering to the principles of ALARA. The examination is degraded by motion artifact. CT DOSE: 294.25 mGy.cm FINDINGS: Lung bases: The heart is enlarged and without pericardial effusion. The coronary arteries, aortic valve leaflets, and mitral annulus are densely calcified. Interval airspace consolidation is seen at the lung bases, right greater than left. No pleural effusion is identified. There is a small hiatal hernia. Liver: Evaluation of the liver is degraded by streak and motion artifact. The contrast-enhanced liver is normal in size, contour, and attenuation. There is no intrahepatic biliary ductal dilatation. The hepatic veins and portal veins are patent. Gallbladder: Grossly unremarkable. Spleen: Normal in size and attenuation. Pancreas: Grossly unremarkable but not well assessed. Adrenal glands: Unremarkable. Kidneys: The contrast enhanced kidneys are normal in size and without hydronephrosis. The kidneys enhance symmetrically. The renal collecting systems and ureters are filled with excreted IV contrast. 3.8 cm cyst arising from the lower pole of the right kidney. Abdominal vasculature: The abdominal aorta is normal in course and caliber noting advanced atherosclerotic calcification. Bowel: There is severe rectosigmoid fecal impaction. There is rectal wall thickening and mild surrounding infiltration. The appearance suggests stroke with proctitis. There is significant distention of the upstream colon which measures up to 10 cm in diameter. There is a twisted appearance of the mesentery in the right lower quadrant. This is of undetermined significance. There is no clear evidence of colonic volvulus. Residual enteric contrast is noted in the colon. No pneumatosis intestinalis or portal venous gas is identified. The small bowel loops are normal in caliber. The appendix is not visualized. Peritoneum: There is no intraperitoneal free air or abdominal ascites. Lymphadenopathy: None. Pelvic viscera: The bladder is distended and filled with excreted IV contrast. The wall is thickened/trabeculated indicating chronic outlet obstruction. There are tiny bladder diverticula. The prostate gland is mildly enlarged and heterogeneous. Skeletal structures: The skeletal structures are osteopenic. There is moderate to advanced lumbosacral spondylosis. There are mild acute to subacute superior endplate compression fractures of T11 and T12. No lytic or blastic lesions are seen. The patient is status post midline sternotomy. There are subacute appeari ng right 9th through 10th rib fractures. IMPRESSION: 1. Significantly motion compromised examination. 2. Multifocal bibasilar airspace consolidation, right greater than left. The appearance is typical for pneumonia/aspiration pneumonitis. Clinical correlation and radiographic follow-up is recommended. 3. There is severe rectosigmoid fecal impaction and constipation. There is mild rectal wall thickening with surrounding infiltration. Correlate clinically for evidence of stercoral proctitis. 4. The upstream colon is markedly distended. Fecal impaction may cause functional obstruction of the colon. Colonic ileus could appear similar. 5. There is swelling of the mesentery in the right lower quadrant which is of indeterminate significance. The small bowel loops are normal in caliber, and the small bowel obstruction seen on 01/29/2023 has resolved. This may cause intermittent small bowel obstruction. 6. No intraperitoneal free air is seen and there is no pneumatosis intestinalis. 7. Cardiomegaly. 8. There are subacute appearing right rib fractures, as well as acute to subacute superior endplate compression fractures of T11 and T12. 9. Additional findings as above. ACT 112: Negative or not required by law. Electronically signed by: Shiv Hernadez M.D. 01/30/2023 12:50 PM Chest X-Ray 01/30/23 09:55 SINGLE VIEW CHEST CLINICAL HISTORY: Generalized abdominal pain. FINDINGS: An AP, portable, upright chest radiograph is compared to study dated 04/09/2012 and correlated with chest CT dated 08/01/2018. The examination is degraded by portable technique and apical positioning. The patient is status post midline sternotomy. The heart is enlarged noting atherosclerotic calcification of the thoracic aorta. The pulmonary vasculature is noncongested. Mild airspace opacities are seen in the right mid to lower lung. Scarring/atelectasis is noted at the lung bases. No large pleural effusion or pneumothorax is identified. The skeletal structures are osteopenic. The bony thorax is grossly intact. IMPRESSION: 1. Cardiomegaly without radiographic evidence of congestive failure. 2. Mild airspace opacities are seen in the right mid to lower lung. Correlate clinically for evidence of a mild pneumonitis. Radiographic follow-up to resolu tion is recommended. ACT 112: Negative or not required by law. Electronically signed by: Shiv Hernadez M.D. 01/30/2023 10:57 AM Discharge Plan Visit Data Chief Complaint: Constipation Stated Complaint: NAUSEA, VOMITING, REFERRED TO ER FOR SBO ED Provider: Shiv Riley Discharge Problem: Pneumonia, Acute dehydration, Leukocytosis, Abdominal distension, Fecal impaction Patient Disposition: Admitted As Inpatient Condition: Fair Forms Stand Alone Forms: [facility] [employer] Prescriptions Prescriptions: No Action Breo Ellipta 100-25 mcg/dose blister with device 1 inh inhalation DAILY Qty: 60 5RF famotidine 20 mg tablet 20 mg PO DAILY Qty: 90 1RF fluticasone propionate 50 mcg/actuation spray,suspension 1 spray INTRANASAL BID Qty: 48 1RF carbamazepine 300 mg capsule, ER multiphase 12 hr 300 mg PO BID Qty: 60 2RF atorvastatin 40 mg tablet 40 mg PO Q OTHER DAY Qty: 45 1RF Rx Instructions: 40 mg orally EVERY OTHER DAY; albuterol sulfate 90 mcg/actuation HFA aerosol inhaler 2 puff inhalation Q8H PRN (Reason: shortness of breath or wheezing) Qty: 18 3RF omeprazole 20 mg capsule,delayed release(DR/EC) 20 mg PO HS carbidopa-levodopa 25-100 mg tablet See Rx Instructions PO .COMPLEX Rx Instructions: Take 1.5 tabs in the 8 am; 1.5 tabs at noon ; 1.5 tab 4pm, 1.5 tabs in the 8 pm ropinirole 1 mg tablet See Rx Instructions .ROUTE .COMPLEX Rx Instructions: Take 1 tab PO 8 AM< 1 tab PO at noon and 1 tabs PO 8 pm polyethylene glycol 3350 [Miralax] 17 gram powder in packet 8.5 g PO DAILY buspirone 10 mg tablet 10 mg PO BID CBD Gummies 2 tab PO DAILY ondansetron 4 mg tablet,disintegrating 4 mg PO Q8H PRN (Reason: Nausea) (DME) compressor, for nebulizer Device See Rx Instructions .Route Qty: 1 0RF Rx Instructions: As directed albuterol sulfate 2.5 mg /3 mL (0.083 %) solution for nebulization 2.5 mg inhalation QID PRN (Reason: shortness of breath or wheezing) Qty: 180 1RF tamsulosin [Flomax] 0.4 mg capsule 0.4 mg PO DAILY Qty: 90 2RF aspirin [Shiva Low Dose Aspirin] 81 mg tablet,delayed release (DR/EC) 81 mg PO QAM fluoxetine 40 mg capsule 40 mg PO QAM Benefiber (guar gum) Packet 0 tbsp PO DAILY Rx Instructions: Patient mixes 1 teaspoon into water once daily. Referrals Referrals: Geraldine Zaman DO [Primary Care Provider] -
[2023-01-30] MEDS ORDERED: OPTIRAY 320 100ml IV ONE (12:23)
[2023-01-30 12:47] LABS: Adenovirus PCR Not Detected (NotDetected); Bordetella parapertussis PCR Not Detected (NotDetected); Bordetella pertussis PCR Not Detected (NotDetected); Chlamydia pneumoniae PCR Not Detected (NotDetected); Coronavirus 229E PCR Not Detected (NotDetected); Coronavirus CoV-2 (COVID19)PCR Not Detected (NotDetected); Coronavirus HKU1 PCR Not Detected (NotDetected); Coronavirus NL63 PCR Not Detected (NotDetected); Coronavirus OC43PCR Not Detected (NotDetected); Human Metapneumovirus PCR Not Detected (NotDetected); Influenza A PCR Not Detected (NotDetected); Influenza B PCR Not Detected (NotDetected); Mycoplasma pneumoniae PCR Not Detected (NotDetected); Parainfluenza Virus 1 PCR Not Detected (NotDetected); Parainfluenza Virus 2 PCR Not Detected (NotDetected); Parainfluenza Virus 3 PCR Not Detected (NotDetected); Parainfluenza Virus 4 PCR Not Detected (NotDetected); Respiratory Syncytial VirusPCR Not Detected (NotDetected); Rhinovirus/Enterovirus PCR Not Detected (NotDetected)
--- NOTE | 2023-01-30 12:52 | CT Scan Report ---
CT SCAN OF THE ABDOMEN AND PELVIS WITH IV CONTRAST CLINICAL HISTORY: Generalized abdominal pain. Fever. COMPARISON STUDY: Abdominal CT dated 01/29/2023, 01/15/2012, and 09/24/2020. TECHNIQUE: Following the IV administration of 88 cc of Optiray 320, CT scan of the abdomen and pelvi s is performed from the lung bases to the proximal femora. Images are reviewed in the axial, sagittal , and coronal planes. IV contrast was administered without complication. A dose lowering technique wa s utilized adhering to the principles of ALARA. The examination is degraded by motion artifact. CT DOSE: 294.25 mGy.cm FINDINGS: Lung bases: The heart is enlarged and without pericardial effusion. The coronary arteries, aortic nery ve leaflets, and mitral annulus are densely calcified. Interval airspace consolidation is seen at the lung bases, right greater than left. No pleural effusion is identified. There is a small hiatal eh ia. Liver: Evaluation of the liver is degraded by streak and motion artifact. The contrast-enhanced liver is normal in size, contour, and attenuation. There is no intrahepatic biliary ductal dilatation. The hepatic veins and portal veins are patent. Gallbladder: Grossly unremarkable. Spleen: Normal in size and attenuation. Pancreas: Grossly unremarkable but not well assessed. Adrenal glands: Unremarkable. Kidneys: The contrast enhanced kidneys are normal in size and without hydronephrosis. The kidneys enh ance symmetrically. The renal collecting systems and ureters are filled with excreted IV contrast. 3. 8 cm cyst arising from the lower pole of the right kidney. Abdominal vasculature: The abdominal aorta is normal in course and caliber noting advanced atheroscle rotic calcification. Bowel: There is severe rectosigmoid fecal impaction. There is rectal wall thickening and mild surroun ding infiltration. The appearance suggests stroke with proctitis. There is significant distention of the upstream colon which measures up to 10 cm in diameter. There is a twisted appearance of the mesen goyo in the right lower quadrant. This is of undetermined significance. There is no clear evidence of colonic volvulus. Residual enteric contrast is noted in the colon. No pneumatosis intestinalis or po rtal venous gas is identified. The small bowel loops are normal in caliber. The appendix is not visu alized. Peritoneum: There is no intraperitoneal free air or abdominal ascites. Lymphadenopathy: None. Pelvic viscera: The bladder is distended and filled with excreted IV contrast. The wall is thickened/ trabeculated indicating chronic outlet obstruction. There are tiny bladder diverticula. The prostate gland is mildly enlarged and heterogeneous. Skeletal structures: The skeletal structures are osteopenic. There is moderate to advanced lumbosacra l spondylosis. There are mild acute to subacute superior endplate compression fractures of T11 and T1 2. No lytic or blastic lesions are seen. The patient is status post midline sternotomy. There are sub acute appearing right 9th through 10th rib fractures. IMPRESSION: 1. Significantly motion compromised examination. 2. Multifocal bibasilar airspace consolidation, right greater than left. The appearance is typical fo r pneumonia/aspiration pneumonitis. Clinical correlation and radiographic follow-up is recommended. 3. There is severe rectosigmoid fecal impaction and constipation. There is mild rectal wall thickenin g with surrounding infiltration. Correlate clinically for evidence of stercoral proctitis. 4. The upstream colon is markedly distended. Fecal impaction may cause functional obstruction of the colon. Colonic ileus could appear similar. 5. There is swelling of the mesentery in the right lower quadrant which is of indeterminate significa nce. The small bowel loops are normal in caliber, and the small bowel obstruction seen on 01/29/2023 pascal s resolved. This may cause intermittent small bowel obstruction. 6. No intraperitoneal free air is seen and there is no pneumatosis intestinalis. 7. Cardiomegaly. 8. There are subacute appearing right rib fractures, as well as acute to subacute superior endplate c ompression fractures of T11 and T12. 9. Additional findings as above. ACT 112: Negative or not required by law. Electronically signed by: Shiv Hernadez M.D. 01/30/2023 12:50 PM
[2023-01-30] MEDS ORDERED: ALBUT/IPRATROP 3MG/0.5MG NEB 3 ML VIAL NEB STA (12:58)
[2023-01-30] MEDS ORDERED: GLYCERIN ADULT 12 SUPP/BOX SUPP PR ONE (13:00)
[2023-01-30 13:07] LABS: Appearance Urine Clear (Clear); Bilirubin Urine Negative (Negative); Blood Urine Negative (Negative); Color Urine Dark Yellow; Glucose Urine UA Negative (Negative); Ketones Urine 1+ (Negative); Leukocyte Esterase Urine Negative (Negative); Nitrite Urine Negative (Negative); Protein Urine Negative (Negative); Specific Gravity Urine > 1.045 (1.000-1.030); Urobilinogen Urine Negative (Negative)
[2023-01-30] MEDS ORDERED: SODIUM CHLORIDE 0.9% 1000ML 500 ML IV ONE (13:12)
--- NOTE | 2023-01-30 14:09 | Electrocardiogram Report ---
Test Reason : Blood Pressure : / mmHG Vent. Rate : 073 BPM Atrial Rate : 073 BPM P-R Int : 256 ms QRS Dur : 146 ms QT Int : 466 ms P-R-T Axes : 042 -20 136 degrees QTc Int : 513 ms Sinus rhythm with 1st degree A-V block Possible Left atrial enlargement Left bundle branch block Abnormal ECG When compared with ECG of 24-MAY-2022 15:45, No significant change was found Confirmed by Rizwan Alcantara ([id number]) on 01/30/2023 2:08:32 PM Referred By: Geraldine Zaman Confirmed By:Rizwan Alcantara
--- NOTE | 2023-01-30 15:01 | History & Physical Report ---
Date of Service January 30, 2023 Assessment & Plan (1) Acute respiratory failure with hypoxia: Plan: -Admit to med/tele on continuous pulse oximetry -Currently stable on 2L NC -At this time it appears that his AHRF is due to aspiration pneumonia due to his recent SBO/ileus -CT and chest xray today showing BL multifocal airway disease with R>L, procal is elevated at 2.46 with a significant leukocytosis and left shift -S/P one dose of cefepime in the ED, will continue with Unasyn for now -Blood cultures obtained, continue to follow -Continue budesonide, prn albuterol for wheezing/SOB, incentive spirometry, flutter therapy, prn robitussin/mucinex -Prn O2 to keep SpO2 at or above 95% -BL SCD's and SQ heparin for DVT PPX -AM CBC, BMP (2) Aspiration pneumonia: Plan: -Aspiration peculations ordered -Will start with clear liquids for now (3) Ileus: Plan: -Noted on CT abd/pelvis today -Currently without abd pain, abdomen is soft -Has chronic constipation -S/P glycerine suppository in the ED, no BM yet -Will continue with BID Miralax, and will order tap water enemas until he is moving his bowels consistently (4) Encephalopathy: Plan: -Patient is mildly confused on exam thinking he is in the [facility] and it is 2021 - states he is normally alert and oriented completely -No focal defects, likely due to his acute illness and hx of Parkinosn's with mild memory deficit -Continue to monitor for improvement with treatment of his illness (5) Elevated troponin: Plan: -Initial high sen trop elevated at 182 -The patient is asymptomatic and without acute changes on ECG -Likely due to demand from his acute illness and hypoxia -Will repeat a STAT 2 hour high sen trop, then monitor q6h overnight on tele (6) Peripheral arterial disease: Plan: -Continue aspirin and atorvastatin (7) CAD (coronary artery disease): Plan: -Continue aspirin (8) Epilepsy: Plan: -Continue BID Carbamazepine -Giving his am dose STAT (9) GERD (gastroesophageal reflux disease): Plan: -Will switch to 40 mg IV Protonix daily for now until his constipation/ileus has resolved (10) BPH (benign prostatic hyperplasia): Plan: -Continue flomax (11) Hyperactive airway disease: Plan: -Continue budesonide and prn albuterol (12) Parkinson's disease: Plan: -Continue 1.5 tabs Carbidopa-levodopa QID -Giving his missed dose now with next dose at 8 pm Plan The patient was discussed with Dr. Muñoz at the time of the admission History of Present Illness Chief Complaint: constipation, concern for bowel obstruction on outpatient imaging Primary Care Provider: Geraldine Zaman DO Rashi is a 77 year old male with a PMH significant for advanced parkinson's disease with dementia, hx of colonic volvulus S/P partial colectomy at [facility] approximately 6 years ago, colonic ileus with previous PEG tube S/P removal at [facility] in 2021, hypertrophic cardiomyopathy s/p septal myectomy, aortic and mitral regurgitation, aortic stenosis, s/p AVR and MVR who presented to the [facility] ED on 01/30/23 due to concerns for abd distention, chronic constipation and possible bowel obstruction on outpatient CT. In the ED he was noted to be hypoxic in the low 90's on RA, febrile at 38C, but was otherwise stable. Labs were significant for a leukocytosis of 14 with left shift of 13, cr of 1.11 (baseline is near 0.8), BUN of 37, initial high sen trop of 182, and full resp biofire negative. CT of the abd/pelvis w/IV con shows multifocal airspace disease concerning for aspiration pneumonia, severe rectosigmoid fecal impact ion/constipation with possible stercoral proctitis, and resolution of the SBO seen on imaging yesterday. Prior to admission the patient was given 1.5L NSS, a dose of Cefepime, 1gm IV tylenol, a duoneb treatment, and 4 mg iv zofran. At the time of the exam the patient was resting in bed in no acute distress with his standing bedside, history was primarily obtained from the patient's due to increased confusion of the patient. She states that they both had a URI last week but she has recovered. He continued to have a non productive cough over the past week. He had been constipated fro 3+ days earlier in the week so they escalated his bowel regimen like normal with senna and a daily OTC suppository for 2 days straight, he had a large BM approximately 2 days ago. The patient has then been constipated with increased ABD distention over the past 48 hours. He has had 2 episodes of non-bloody emesis at home, since the his cough has increased. He was noted to have the SBO on CT from yesterday, which is why they were told to come in. When asked, the patient's only complaint is his cough. He was febrile at home but has not had chills. His notes that his baseline tremors can be severe at times. He denies chest pain, SOB, abd pain, nausea, vomiting, dysuria, hematuria, melena, and recent trauma. His thinks his abd is currently a little softer than prior to arrival. He had his am dose of Sinemet but not Carbamazepine. We discussed code status, he is currently a Full code and would want his to make medical decisions for him if he could not make them himself. Please refer to Dr. Muñoz's attestation for any changes to the treatment plan Allergies Allergy/AdvReac Type Severity Reaction Status Date / Time No Known Drug Allergies Allergy Unknown Verified 01/30/23 12:45 Home Medications Medication Instructions Recorded Confirmed Type fluoxetine 40 mg capsule 40 mg PO QAM 05/19/21 01/30/23 History aspirin 81 mg tablet,delayed 81 mg PO QAM 12/19/21 01/30/23 History release (Shiva Low Dose Aspirin) buspirone 10 mg tablet 10 mg PO BID 12/19/21 01/30/23 History fluticasone furoate 100 1 inh inhalation DAILY #60 ea 03/22/22 01/30/23 Rx mcg-vilanterol 25 mcg/dose inhalation powder (Breo Ellipta) albuterol sulfate 90 mcg/actuation 2 puff inhalation Q8H PRN 04/26/22 01/30/23 Rx aerosol inhaler shortness of breath or wheezing #18 grams tamsulosin 0.4 mg capsule (Flomax) 0.4 mg PO DAILY #90 caps 05/11/22 01/30/23 Rx albuterol sulfate 2.5 mg/3 mL 2.5 mg (3 mL) inhalation QID PRN 07/30/22 01/30/23 Rx (0.083 %) solution for nebulization shortness of breath or wheezing #180 mL compressor, for nebulizer #1 ea 07/30/22 01/30/23 Rx famotidine 20 mg tablet 20 mg PO DAILY #90 tabs 09/07/22 01/30/23 Rx omeprazole 20 mg capsule,delayed 20 mg PO HS 09/18/22 01/30/23 History release fluticasone propionate 50 1 spray intranasal BID #48 grams 10/18/22 01/30/23 Rx mcg/actuation nasal spray,suspension atorvastatin 40 mg tablet 40 mg PO Q OTHER DAY #45 tabs 11/15/22 01/30/23 Rx carbamazepine 300 mg 300 mg PO BID #60 caps 11/15/22 01/30/23 Rx capsule,extended release [id number] CBD Gummies 2 tab PO DAILY 01/28/23 01/30/23 History carbidopa 25 mg-levodopa 100 mg See Rx Instructions PO .COMPLEX 01/28/23 01/30/23 History tablet ondansetron 4 mg disintegrating 4 mg PO Q8H PRN Nausea 01/28/23 01/30/23 History tablet polyethylene glycol 3350 17 gram 8.5 g PO DAILY 01/28/23 01/30/23 History oral powder packet (Miralax) ropinirole 1 mg tablet See Rx Instructions .Route .COMPLEX 01/28/23 01/30/23 History guar gum 0 tbsp PO DAILY 01/30/23 01/30/23 History Past Med/Surg History Medical History (Updated 01/31/23 @ 00:04 by Background Daemon) Allergic rhinitis Anemia no known hx blood transfusion Aortic stenosis Moderate aortic stenosis with mild to moderate AR (YASMIN 1.9 to 2.0 cm. Mean gradient 22.8 mmHg) per 08/2018 ECHO Aortic stenosis Aspiration pneumonia BPH (benign prostatic hyperplasia) CAD (coronary artery disease) Cardiomyopathy, hypertrophic Carotid atherosclerosis Chronic constipation Constipation, chronic Depression Depression with anxiety Dyslipidemia Epilepsy GERD (gastroesophageal reflux disease) Hyperactive airway disease Hypertension per records/patient denies Hypertrophic cardiomyopathy LBBB (left bundle branch block) dating back to at least 05/2019 EKG Mild cognitive impairment Mitral and aortic regurgitation Mitral regurgitation Orthostatic hypotension occasional Parkinson's disease Parkinsons disease Pneumonia Prediabetes 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 Last seizure months ago with ?seizure episode 10/27/19 (suspected may have been r/t lightheadedness/orthostasis with standing) Small bowel obstruction Urinary incontinence Vitamin B12 deficiency Vitamin D deficiency Volvulus hx Surgical History History of colonoscopy History of esophagogastroduodenoscopy (EGD) History of open sigmoidectomy (05/2018) Ex-lap sigmoid resection: 06/11/18: Grade view 2/3, MAC 3.0, ETT 8.0 at [facility] secondary to volvulus History of tonsillectomy S/P aortic valve and mitral valve replacement (05/26/21) S/P hernia repair (10/2019) R inguinal hernia S/P percutaneous endoscopic gastrostomy (PEG) tube placement (07/08/21) [place] teeth extracted Family History Mother , age 68 of ovarian cancer. Ovarian cancer Colorectal cancer Father , age 83 with congestive heart failure and had Parkinson's disease since age 70. CHF (congestive heart failure) Parkinson disease Uncle Myocardial infarction Uncle Myocardial infarction Son Diabetes Other Coronary heart disease Hypertension Denies family history of Breast cancer Lung cancer Social History Smoking Status: Never smoker Second Hand Exposure: Yes; Do You Dip or Chew Tobacco: No; Hx Alcohol Use: Yes Alcohol type: beer Alcohol Intake Frequency: 4 or More x per/Week Hx Substance Use: No Preferred Language: [place] Verdean Communication Ability: Effective Visual Impairment: No Limitations Hearing Ability: Use of Hearing Aid Clinical Research Management Associate Required: No Beliefs That Will Affect Care: None marital status: Current Living Situation: Spouse current occupational status: retired Other Information That Helps Us Care for You: No other: 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 Feels Safe at Home: Yes Safety Concerns: Feels Safe At This Time Childhood Exposure to Second-Hand Smoke: Yes Diet: regular Diet Comment: regular caffeine: Yes during the past year weight has: increased > 10 lbs Dental Care, Regularly: Yes Physical Activity Frequency: Daily Physical Activity Frequency Comment: walking ,exercise bike Seatbelt Use: always Sunscreen Use: No Assistive Devices: Glasses, Walker and Other Physical Exam Physical Exam: Physical Exam: General: In no acute distress, stated age, ill appearing but non-toxic HEENT: Normocephalic, atraumatic, no scleral icterus, pupils around round, symmetrical, and reactive to light, moist mucus membranes, trachea midline, no thyromegaly Chest/Pulm: No respiratory distress, symmetrical chest expansion, rhonchi noted in the RLL, otherwise expiratory wheezing noted throughout Cardiac: RRR, systolic murmur noted Abdomen: Negative for ascites and bruising, hypoactive bowel sounds, soft, non-tender to palpation throughout Musculoskeletal: Symmetrical and without signs of acute trauma, upper and lower extremities with full ROM, Extremities: Radial, dorsalis pedis, and posterior tibial pulses are intact and symmetrical, no edema noted in the BL LE's Skin: Warm, dry, no rashes , lesions, or scars noted Neuro: Alert and oriented to person and month, but thought we were at the [facility] and it was 2021, no focal defects, CN II-XII tested and intact, baseline tremor noted Psych: No acute distress, calm and cooperative during the exam Results & Data Results & Data Vital Signs (Past 12 Hours) Vital Signs Temp Pulse Resp BP Pulse Ox O2 Del Method O2 Flow Rate 01/30/23 14:30 70 17 95 Nasal Cannula 2 01/30/23 14:30 101/60 01/30/23 14:00 62 16 97 01/30/23 14:00 96/51 L 01/30/23 13:31 61 18 94 01/30/23 13:31 102/60 01/30/23 13:30 61 24 94 01/30/23 13:55 63 01/30/23 13:00 63 17 93 Nasal Cannula 2 01/30/23 13:00 90/51 L 01/30/23 12:30 78 18 91 01/30/23 12:30 113/61 01/30/23 12:28 71 23 91 01/30/23 12:28 106/60 01/30/23 12:00 67 19 90 01/30/23 12:28 37.3 C 01/30/23 11:30 73 20 91 01/30/23 11:00 67 20 91 01/30/23 10:30 66 23 91 01/30/23 10:00 65 24 91 01/30/23 09:35 67 22 90 01/30/23 11:07 74 19 93 Room Air 01/30/23 09:55 66 01/30/23 09:24 38 C H 18 112/61 90 Room Air Laboratory Results Abnormal lab results 01/30/23 01/30/23 01/30/23 Range/Units 09:55 09:55 12:37 WBC 14.17 H (4.8-10.8) K/ul RBC 4.16 L (4.70-6.10) M/uL Hgb 12.7 L (14.0-18.0) g/dl Hct 36.9 L (42.0-52.0) % RDW Std Deviation 47.8 H (36.4-46.3) fL RDW Coeff of [place] 14.9 H (11.5-14.5) % Neut # (Auto) 13.00 H (1.40-6.50) K/uL Lymph # (Auto) 0.39 L (1.2-3.4) K/uL [place] # (Auto) 0.71 H (0.11-0.59) K/uL Chloride 108 H (98-107) mmol/L BUN 37 H (6-23) mg/dl BUN/Creatinine Ratio 33.3 H (10-20) Calcium 8.2 L (8.6-10.3) mg/dl ALT 4 L (7-52) U/L Alkaline Phosphatase 113 H (34-104) U/L Troponin I High Sens 182.7 H* (0-20) pg/ml Lipase 6 L (11-82) U/L Procalcitonin (0-0.5) ng/ml Ur Specific [place] > 1.045 H (1.000-1.030) Urine Ketones 1+ H (Negative) 01/30/23 Range/Units 14:48 WBC (4.8-10.8) K/ul RBC (4.70-6.10) M/uL Hgb (14.0-18.0) g/dl Hct (42.0-52.0) % RDW Std Deviation (36.4-46.3) fL RDW Coeff of [place] (11.5-14.5) % Neut # (Auto) (1.40-6.50) K/uL Lymph # (Auto) (1.2-3.4) K/uL [place] # (Auto) (0.11-0.59) K/uL Chloride (98-107) mmol/L BUN (6-23) mg/dl BUN/Creatinine Ratio (10-20) Calcium (8.6-10.3) mg/dl ALT (7-52) U/L Alkaline Phosphatase (34-104) U/L Troponin I High Sens (0-20) pg/ml Lipase (11-82) U/L Procalcitonin 2.46 H (0-0.5) ng/ml Ur Specific [place] (1.000-1.030) Urine Ketones (Negative) Diagnostic Findings Abdomen/Pelvis CT 01/30/23 09:55 CT SCAN OF THE ABDOMEN AND PELVIS WITH IV CONTRAST CLINICAL HISTORY: Generalized abdominal pain. Fever. COMPARISON STUDY: Abdominal CT dated 01/29/2023, 01/15/2012, and 09/24/2020. TECHNIQUE: Following the IV administration of 88 cc of Optiray 320, CT scan of the abdomen and pelvis is performed from the lung bases to the proximal femora. Images are reviewed in the axial, sagittal, and coronal planes. IV contrast was administered without complication. A dose lowering technique was utilized adhering to the principles of ALARA. The examination is degraded by motion artifact. CT DOSE: 294.25 mGy.cm FINDINGS: Lung bases: The heart is enlarged and without pericardial effusion. The coronary arteries, aortic valve leaflets, and mitral annulus are densely calcified. Interval airspace consolidation is seen at the lung bases, right greater than left. No pleural effusion is identified. There is a small hiatal hernia. Liver: Evaluation of the liver is degraded by streak and motion artifact. The contrast-enhanced liver is normal in size, contour, and attenuation. There is no intrahepatic biliary ductal dilatation. The hepatic veins and portal veins are patent. Gallbladder: Grossly unremarkable. Spleen: Normal in size and attenuation. Pancreas: Grossly unremarkable but not well assessed. Adrenal glands: Unremarkable. Kidneys: The contrast enhanced kidneys are normal in size and without hydronephrosis. The kidneys enhance symmetrically. The renal collecting systems and ureters are filled with excreted IV contrast. 3.8 cm cyst arising from the lower pole of the right kidney. Abdominal vasculature: The abdominal aorta is normal in course and caliber noting advanced atherosclerotic calcification. Bowel: There is severe rectosigmoid fecal impaction. There is rectal wall thickening and mild surrounding infiltration. The appearance suggests stroke with proctitis. There is significant distention of the upstream colon which measures up to 10 cm in diameter. There is a twisted appearance of the mesentery in the right lower quadrant. This is of undetermined significance. There is no clear evidence of colonic volvulus. Residual enteric contrast is noted in the colon. No pneumatosis intestinalis or portal venous gas is identified. The small bowel loops are normal in caliber. The appendix is not visualized. Peritoneum: There is no intraperitoneal free air or abdominal ascites. Lymphadenopathy: None. Pelvic viscera: The bladder is distended and filled with excreted IV contrast. The wall is thickened/trabeculated indicating chronic outlet obstruction. There are tiny bladder diverticula. The prostate gland is mildly enlarged and het erogeneous. Skeletal structures: The skeletal structures are osteopenic. There is moderate to advanced lumbosacral spondylosis. There are mild acute to subacute superior endplate compression fractures of T11 and T12. No lytic or blastic lesions are seen. The patient is status post midline sternotomy. There are subacute appearing right 9th through 10th rib fractures. IMPRESSION: 1. Significantly motion compromised examination. 2. Multifocal bibasilar airspace consolidation, right greater than left. The appearance is typical for pneumonia/aspiration pneumonitis. Clinical correlation and radiographic follow-up is recommended. 3. There is severe rectosigmoid fecal impaction and constipation. There is mild rectal wall thickening with surrounding infiltration. Correlate clinically for evidence of stercoral proctitis. 4. The upstream colon is markedly distended. Fecal impaction may cause functional obstruction of the colon. Colonic ileus could appear similar. 5. There is swelling of the mesentery in the right lower quadrant which is of indeterminate significance. The small bowel loops are normal in caliber, and the small bowel obstruction seen on 01/29/2023 has resolved. This may cause intermittent small bowel obstruction. 6. No intraperitoneal free air is seen and there is no pneumatosis intestinalis. 7. Cardiomegaly. 8. There are subacute appearing right rib fractures, as well as acute to subacute superior endplate compression fractures of T11 and T12. 9. Additional findings as above. ACT 112: Negative or not required by law. Electronically signed by: Shiv Hernadez M.D. 01/30/2023 12:50 PM Chest X-Ray 01/30/23 09:55 SINGLE VIEW CHEST CLINICAL HISTORY: Generalized abdominal pain. FINDINGS: An AP, portable, upright chest radiograph is compared to study dated 04/09/2012 and correlated with chest CT dated 08/01/2018. The examination is degraded by portable technique and apical positioning. The patient is status post midline sternotomy. The heart is enlarged noting atherosclerotic calcification of the thoracic aorta. The pulmonary vasculature is noncongested. Mild airspace opacities are seen in the right mid to lower lung. Scarring/atelectasis is noted at the lung bases. No large pleural effusion or pneumothorax is identified. The skeletal structures are osteopenic. The bony thorax is grossly intact. IMPRESSION: 1. Cardiomegaly without radiographic evidence of congestive failure. 2. Mild airspace opacities are seen in the right mid to lower lung. Correlate clinically for evidence of a mild pneumonitis. Radiographic follow-up to resolution is recommended. ACT 112: Negative or not required by law. Electronically signed by: Shiv Hernadez M.D. 01/30/2023 10:57 AM ECG Additional Comments: Sinus rhythm with 1st degree A-V block Possible Left atrial enlargement Left bundle branch block Abnormal ECG When compared with ECG of 24-MAY-2022 15:45, No significant change was found Confirmed by Rizwan Alcantara ([id number]) on 01/30/2023 2:08:32 PM Code Status & VTE Plan Code Status FUll code VTE Prophylaxis Plan VTE Prophylaxis will be ordered: Yes Supervising Physician Co-Signing Physician Notes I personally saw and examined the patient. I verified all hahn points and agree with aJe Hart PA-C with the following exceptions and/or additions: 77 year old male presents to the ER with concerns for bowel obstruction on CT yesterday. His reports ongoing chronic problems with constipation but no abdominal pain. Last large BM 2 days ago. also notes URI symptoms for the last week and progressive worsening shortness of breath. O/E Alert, orientated to person but not date or place, Cogwheel rigidity b/l, HS RRR, no murmurs, Chest, using accessory muscles, crackles bibasal, no wheezing, Abdo distended but non tender, BS normal A/P Pneumonia - concern for aspiration and will be covered with Unasyn for this. Procalcitonin 2.46. Will add doxycycline for atypical coverage Constipation - SBO on CT yesterday appears to have resolved on CT today. Will start MiraLAX 17g BID. Consider manual disimpaction if still not having BM but suspect impaction is a more chronic rather than acute problem Elevated troponin - No chest pain to suggest ACS. Given increase will give ASA 324mg and get TTE in AM. Unable to start BB due to HR. Unlikely to benefit from heparin IV as a poor cardiac catheterization candidate and low suspicion of ACS with no current chest pain. Suspect this represents more of a demand ischemia in setting of pneumonia as above. PG Care Time/CCT Total # of Minutes Spent Total Time Spent with Patient: Total time spent is greater than 50% in coordination of care (as documented) at patient's floor/unit and/or counseling patient: Coding [place] [address] INT INP/OBS CARE 3/75MIN Patient Type Established Medical Decision Making High Complexity Diagnoses Acute respiratory failure with hypoxia J96.01 Aspiration pneumonia J69.0 Ileus K56.7 Encephalopathy G93.40 Elevated troponin R77.8 Peripheral arterial disease I73.9 CAD (coronary artery disease) I25.10 Epilepsy G40.909 GERD (gastroesophageal reflux disease) K21.9 BPH (benign prostatic hyperplasia) N40.0 Hyperactive airway disease J45.909 Parkinson's disease G20
[2023-01-30] MEDS ORDERED: CARBIDOPA/LEVODOPA 25/100MG TAB PO STA (15:27)
[2023-01-30] MEDS ORDERED: POLYETHYLENE (MIRALAX) 17 GM PACK PO STA (15:36)
[2023-01-30] MEDS ORDERED: guaiFENesin/DEXTROM SYRUP 100MG/10MG 5ML UDC PO PRN (15:42)
[2023-01-30] MEDS ORDERED: LACTATED RINGER'S 1,000 ML IV SCH (15:45)
[2023-01-30] MEDS ORDERED: PANTOprazole 40 MG in SYRINGE 0 ML IV ONE (15:55)
[2023-01-30] MEDS ORDERED: ALBUTEROL 0.083% NEBU SOLN 3 ML VIAL INH PRN (16:57)
[2023-01-30] MEDS ORDERED: ACETAMINOPHEN 325 MG TAB PO PRN (16:57)
[2023-01-30] MEDS ORDERED: ASPIRIN 81 MG CHEW PO STA (17:58)
[2023-01-30] MEDS: ATORVASTATIN 40 MG TAB PO SCH (17:58)
[2023-01-30] MEDS: AMPICILLIN/SULBACTAM SOD 3,000 MG in 0.9 % SODIUM CHLORIDE 100 ML IV SCH ×2 (17:58→21:03)
[2023-01-30] MEDS: FLUTICASONE/VILANTEROL 100/25MCG 14 PUFFS/INHALER INH SCH (18:00)
[2023-01-30] MEDS: ASPIRIN 81 MG ECTAB PO SCH (18:42)
[2023-01-30] MEDS: POLYETHYLENE (MIRALAX) 17 GM PACK PO SCH (20:58)
[2023-01-30] MEDS: busPIRone 5 MG TAB PO SCH (21:00)
[2023-01-30] MEDS: HEPARIN SOD 5,000 UNIT/0.5 ML VIAL SQ SCH (21:01)
[2023-01-30] MEDS: CARBIDOPA/LEVODOPA 25/100MG TAB PO SCH (21:02)
[2023-01-31] MEDS: DOXYCYCLINE HYCLATE 100 MG in DEXTROSE 5% 100 ML IV SCH ×3 (01:40→23:00)
[2023-01-31 04:17] LABS: Basophils # (auto) 0.02 K/uL (0-0.2); Basophils % (auto) 0.2 %; Eosinophils # (auto) 0.09 K/uL (0-0.50); Eosinophils % (auto) 0.7 %; Hematocrit (blood only) 34.9 % (42.0-52.0); Hemoglobin 11.5 g/dl (14.0-18.0); Immature Granulocytes # (auto) 0.04 K/uL (0.01-0.20); Immature Granulocytes % (auto) 0.3 %; Lymphocytes # (auto) 0.95 K/uL (1.2-3.4); Lymphocytes % (auto) 7.4 %; Mean Corpuscular Hemoglobin 30.3 pg (25.0-34.0); Mean Corpuscular Volume 91.8 fL (80.0-100.0); Mean Platelet Volume 10.8 fL (9.4-12.4); Monocytes # (auto) 0.81 K/uL (0.11-0.59); Monocytes % (auto) 6.3 %; Neutrophils # (auto) 11.01 K/uL (1.40-6.50); Neutrophils % (auto) 85.1 %; Platelet Count 163 K/uL (130-400); RDW Coefficient of Variation 14.7 % (11.5-14.5); RDW Standard Deviation 49.5 fL (36.4-46.3); White Blood Count 12.92 K/ul (4.8-10.8)
[2023-01-31 04:32] LABS: BUN Creatinine Ratio 39.6 (10-20); Calcium 8.1 mg/dl (8.6-10.3); Creatinine Clr Calc Pharmacy 49.8 ml/min; Est GFR (African American) 83.4 ml/min; Est GFR (Non-African American) 71.9 ml/min; Potassium 3.8 mmol/L (3.5-5.1)
[2023-01-31] MEDS: AMPICILLIN/SULBACTAM SOD 3,000 MG in 0.9 % SODIUM CHLORIDE 100 ML IV SCH ×4 (06:09→22:27)
[2023-01-31] MEDS: HEPARIN SOD 5,000 UNIT/0.5 ML VIAL SQ SCH ×3 (06:09→22:26)
[2023-01-31] MEDS: CARBIDOPA/LEVODOPA 25/100MG TAB PO SCH ×4 (09:20→20:06)
[2023-01-31] MEDS: FLUoxetine HCL 20 MG CAP PO SCH (09:21)
[2023-01-31] MEDS: busPIRone 5 MG TAB PO SCH ×2 (09:21→20:07)
[2023-01-31] MEDS: ASPIRIN 81 MG ECTAB PO SCH (09:22)
[2023-01-31] MEDS: rOPINIRole HCL 1 MG TABLET PO SCH ×3 (09:22→20:07)
[2023-01-31] MEDS: FLUTICASONE/VILANTEROL 100/25MCG 14 PUFFS/INHALER INH SCH (09:23)
[2023-01-31] MEDS: POLYETHYLENE (MIRALAX) 17 GM PACK PO SCH ×2 (09:23→20:09)
[2023-01-31] MEDS: PANTOprazole 40 MG in SYRINGE 0 ML IV SCH (11:21)
[2023-01-31] MEDS: TAMSULOSIN HCL 0.4 MG CAP PO SCH (11:22)
--- NOTE | 2023-01-31 15:50 | XCELERA ---
[id number]
--- NOTE | 2023-01-31 16:28 | Hospitalist Progress Note ---
Date of Service January 31, 2023 Assessment & Plan (1) Acute respiratory failure with hypoxia: Plan: Suspect ileus leading to aspiration and subsequent pneumonitis/pneumonia leading to acute hypoxic respiratory failure. Acute, improving but not resolved -Continue to titrate oxygen goal 94% -Admit CT and chest xray today showing BL multifocal airway disease with R>L, procal is elevated at 2.46 with a significant leukocytosis and left shift -Continued on Unasyn, slowly improving. Target Augmentin for p.o. conversion when ready for discharge -Blood cultures obtained, continue to follow -Continue budesonide, prn albuterol for wheezing/SOB, incentive spirometry, flu tter therapy, prn robitussin/mucinex -BL SCD's and SQ heparin for DVT PPX -AM CBC, BMP (2) Aspiration pneumonia: Plan: -Aspiration peculations ordered, tx as noted (3) Ileus: Plan: -Noted on CT abd/pelvis -Bowels are progressing, but patient still hypoactive and abdomen to starting to become soft. Slowly advance diet as tolerated, hold if worsening distention or nausea develop -Has chronic constipation -Bowels are beginning to move, 2X today. Continue twice daily MiraLAX, defer additional enemas follow progression (4) Encephalopathy: Plan: -Initially oriented to [facility] in 2021 on admit, patient is improving he is oriented to name, [place], and 2022 at bedside - states he is normally alert and oriented completely -No focal defects, likely due to his acute illness and hx of Parkinosn's with mild memory deficit -Continue to monitor for improvement with treatment of his illness (5) Elevated troponin: Plan: -Initial high sen trop elevated at 182 -The patient is asymptomatic and without acute changes on ECG -Likely due to demand from his acute illness and hypoxia -Troponin downtrending Echo with EF 60-65%, septal motion consistent with postoperative state, no significant change compared to prior. Consistent with demand (6) Peripheral arterial disease: Plan: -Continue aspirin and atorvastatin (7) CAD (coronary artery disease): Plan: -Continue aspirin (8) Epilepsy: Plan: -Continue BID Carbamazepine (9) GERD (gastroesophageal reflux disease): Plan: -Continue IV Protonix daily for now until his constipation/ileus has resolved (10) BPH (benign prostatic hyperplasia): Plan: -Continue flomax (11) Hyperactive airway disease: Plan: -Continue budesonide and prn albuterol (12) Parkinson's disease: Plan: -Continue 1.5 tabs Carbidopa-levodopa QID Plan Patient clinically improving. Slowly advance diet as tolerated, caution aggressive increase with history of chronic constipation and ileus. Bowel movements are continuing, will defer enemas and continue MiraLAX. Continue treatment for aspiration pneumonia, PT/OT.Patient's is at bedside, they report they do not wish to pursue any type of rehab and want him to be strong enough to return home with assistance. Note that he is currently improving, but still ill and more weak than his baseline which is also impaired due to history of parkinsonism. Admission and Anticipated Discharge Date Admission Date: January 30, 2023 Subjective Seen at bedside with his present. Abdomen is still distended, but much more soft than it was yesterday. Patient remains on 2 L nasal cannula, but feels his breathing is improved. Cough, but nonproductive today. No chest pain at time of assessment. Remains with baseline tremor. Denies lightheadedness, dizziness, loss of consciousness. has various questions about labs, these were reviewed with her at the bedside. Patient denies fever/chills and feels he is slowly improving but still very weak compared to his normal baseline Review of Systems Review of Systems: All systems reviewed & are unremarkable except as noted in Subjective Physical Exam Physical Exam: General: Alert and oriented to name, year no acute distress. Appears fatigued but nontoxic HEENT: Atraumatic, normocephalic. Vision and hearing grossly intact Pulm: CTAB A&P. -wheezes, -rales, -rhonchi. Symmetrical chest rise. No increased work of breathing. No respiratory distress. Cardiac: RRR, -mrg. Radial pulses intact and symmetrical. Abdominal: Distended, slightly firm but softer per nursing and compared to prior evaluation. Bowel sounds are diminished, nontender Extremities: Resting tremor in hands and feet bilaterally. Sensation intact to soft touch in hands and feet. No edema Results & Data Results & Data Vital Signs (Past 12 Hours) Vital Signs Temp Pulse Resp BP BP Pulse Ox O2 Del Method 01/31/23 16:01 36.5 C 68 19 133/69 95 Nasal Cannula 01/31/23 11:31 37.2 C 57 L 18 125/68 94 Nasal Cannula 01/31/23 09:30 Nasal Cannula 01/31/23 07:50 37 C 66 20 130/72 97 Nasal Cannula O2 Flow Rate 01/31/23 16:01 3 01/31/23 11:31 3 01/31/23 09:30 01/31/23 07:50 3 PG Care Time/CCT Total # of Minutes Spent Total Time Spent with Patient: Total time spent is greater than 50% in coordination of care (as documented) at patient's floor/unit and/or counseling patient: Coding Level of Care Code 63133 SUB INP/OBS CARE 3/50MIN Diagnoses Acute respiratory failure with hypoxia J96.01 Aspiration pneumonia J69.0 Ileus K56.7 Encephalopathy G93.40 Elevated troponin R77.8 Peripheral arterial disease I73.9 CAD (coronary artery disease) I25.10 Epilepsy G40.909 GERD (gastroesophageal reflux disease) K21.9 BPH (benign prostatic hyperplasia) N40.0 Hyperactive airway disease J45.909 Parkinson's disease G20
[2023-02-01] MEDS: MELATONIN 3 MG TAB PO PRN (03:29)
[2023-02-01] MEDS: AMPICILLIN/SULBACTAM SOD 3,000 MG in 0.9 % SODIUM CHLORIDE 100 ML IV SCH ×4 (04:18→22:31)
[2023-02-01] MEDS: HEPARIN SOD 5,000 UNIT/0.5 ML VIAL SQ SCH ×3 (06:31→22:31)
[2023-02-01 07:45] LABS: Basophils # (auto) 0.03 K/uL (0-0.2); Basophils % (auto) 0.3 %; Eosinophils # (auto) 0.17 K/uL (0-0.50); Eosinophils % (auto) 1.8 %; Hematocrit (blood only) 34.1 % (42.0-52.0); Hemoglobin 11.2 g/dl (14.0-18.0); Immature Granulocytes # (auto) 0.03 K/uL (0.01-0.20); Immature Granulocytes % (auto) 0.3 %; Lymphocytes # (auto) 0.71 K/uL (1.2-3.4); Lymphocytes % (auto) 7.5 %; Mean Corpuscular Hemoglobin 30.3 pg (25.0-34.0); Mean Corpuscular Hgb Conc 32.8 g/dL (32.0-36.0); Mean Corpuscular Volume 92.2 fL (80.0-100.0); Mean Platelet Volume 10.4 fL (9.4-12.4); Monocytes % (auto) 8.5 %; Neutrophils % (auto) 81.6 %; Platelet Count 157 K/uL (130-400); RDW Coefficient of Variation 14.6 % (11.5-14.5); RDW Standard Deviation 49.1 fL (36.4-46.3); White Blood Count 9.44 K/ul (4.8-10.8)
[2023-02-01 08:16] LABS: Potassium 3.4 mmol/L (3.5-5.1)
[2023-02-01 08:28] LABS: BUN Creatinine Ratio 34.3 (10-20); Creatinine Clr Calc Pharmacy 67.8 ml/min; Est GFR (African American) 106.2 ml/min; Est GFR (Non-African American) 91.7 ml/min
[2023-02-01] MEDS: ASPIRIN 81 MG ECTAB PO SCH (09:28)
[2023-02-01] MEDS: rOPINIRole HCL 1 MG TABLET PO SCH ×3 (09:28→20:07)
[2023-02-01] MEDS: CARBIDOPA/LEVODOPA 25/100MG TAB PO SCH ×4 (09:29→20:07)
[2023-02-01] MEDS: ATORVASTATIN 40 MG TAB PO SCH (09:29)
[2023-02-01] MEDS: TAMSULOSIN HCL 0.4 MG CAP PO SCH (09:29)
[2023-02-01] MEDS: FLUoxetine HCL 20 MG CAP PO SCH (09:29)
[2023-02-01] MEDS: busPIRone 5 MG TAB PO SCH ×2 (09:30→20:08)
[2023-02-01] MEDS: POLYETHYLENE (MIRALAX) 17 GM PACK PO SCH ×2 (09:31→20:09)
[2023-02-01] MEDS: FLUTICASONE/VILANTEROL 100/25MCG 14 PUFFS/INHALER INH SCH (09:31)
[2023-02-01] MEDS: PANTOprazole 40 MG in SYRINGE 0 ML IV SCH (10:49)
[2023-02-01] MEDS: DOXYCYCLINE HYCLATE 100 MG in DEXTROSE 5% 100 ML IV SCH ×2 (11:38→23:10)
--- NOTE | 2023-02-01 15:08 | Cardiology Consultation ---
Date of Consultation February 01, 2023 Assessment & Plan (1) Elevated troponin: (2) CAD (coronary artery disease): (3) Hypertrophic cardiomyopathy: (4) S/P aortic valve and mitral valve replacement: Plan 1. Elevated troponin: I do not believe this represents progression of coronary disease, I suspect it is demand ischemia based on hypoxia and left ventricular hypertrophy. I would not pursue further coronary evaluation. 2. Coronary disease: He does have known coronary artery disease, however I do not believe that that is a factor here. At this point I do not think we should pursue further evaluation. 3. Hypertrophic cardiomyopathy: He has left ventricular hypertrophy, he has had a myomectomy but does not seem to have residual outflow tract gradient. 4. Aortic and mitral valve replacements: Clinically, by exam and by his echocardiogram here these valves are functioning properly. At this point I would not pursue further cardiac evaluation. History of Present Illness Reason for Consultation: Elevated troponin Attending Physician: Miguel Angel Conner History of Present Illness This is a 77-year-old male who has a history of Parkinson's disease, hypertrophic cardiomyopathy with septal outflow tract obstruction for which he had a septal myomectomy in 2020 at [facility], he also had a mitral and aortic valve replacement at that time. That surgery was somewhat complicated with a cardiac arrest at the time as well as aspiration pneumonia, tracheostomy and ileus. He did however recover from that. Catheterization at that time showed diffuse nonobstructive coronary artery disease and he has been maintained on aspirin and statin therapy since. He was on a beta-wilman but that was discontinued in 2021 due to orthostasis. He presented to the emergency room on the evening of January 30, 2023 with GI difficulty. He also had acute respiratory failure with hypoxia. Cardiac evaluation included electrocardiography which showed sinus rhythm with first- degree AV block and left bundle branch block. Troponin measurements were abnormal with a presenting high-sensitivity troponin of 760, this peaked at 1175 hours later and 15 hours after presentation had dropped back to 603. An echocardiogram done January 31, 2023 was technically difficult but showed the left ventricle to be normal in size with concentric left ventricular hypertrophy and ejection fraction of 60 to 65%. The right ventricle also appeared to be normal in size with normal systolic function. The bioprosthetic aortic and mitral valves appeared to be opening well with normal gradients. At the time of my evaluation he is resting in bed, he appears fatigued but he is conversational. He denies any type of chest discomfort, he is currently not short of breath. Allergies Allergy/AdvReac Type Severity Reaction Status Date / Time No Known Drug Allergies Allergy Unknown Verified 01/30/23 12:45 Home Medications Medication Instructions Recorded Confirmed Type fluoxetine 40 mg capsule 40 mg PO QAM 05/19/21 01/30/23 History aspirin 81 mg tablet,delayed 81 mg PO QAM 12/19/21 01/30/23 History release (Shiva Low Dose Aspirin) buspirone 10 mg tablet 10 mg PO BID 12/19/21 01/30/23 History fluticasone furoate 100 1 inh inhalation DAILY #60 ea 03/22/22 01/30/23 Rx mcg-vilanterol 25 mcg/dose inhalation powder (Breo Ellipta) albuterol sulfate 90 mcg/actuation 2 puff inhalation Q8H PRN 04/26/22 01/30/23 Rx aerosol inhaler shortness of breath or wheezing #18 grams tamsulosin 0.4 mg capsule (Flomax) 0.4 mg PO DAILY #90 caps 05/11/22 01/30/23 Rx albuterol sulfate 2.5 mg/3 mL 2.5 mg (3 mL) inhalation QID PRN 07/30/22 01/30/23 Rx (0.083 %) solution for nebulization shortness of breath or wheezing #180 mL compressor, for nebulizer #1 ea 07/30/22 01/30/23 Rx famotidine 20 mg tablet 20 mg PO DAILY #90 tabs 09/07/22 01/30/23 Rx omeprazole 20 mg capsule,delayed 20 mg PO HS 09/18/22 01/30/23 History release fluticasone propionate 50 1 spray intranasal BID #48 grams 10/18/22 01/30/23 Rx mcg/actuation nasal spray,suspension atorvastatin 40 mg tablet 40 mg PO Q OTHER DAY #45 tabs 11/15/22 01/30/23 Rx carbamazepine 300 mg 300 mg PO BID #60 caps 11/15/22 01/30/23 Rx capsule,extended release [id number] CBD Gummies 2 tab PO DAILY 01/28/23 01/30/23 History carbidopa 25 mg-levodopa 100 mg See Rx Instructions PO .COMPLEX 01/28/23 01/30/23 History tablet ondansetron 4 mg disintegrating 4 mg PO Q8H PRN Nausea 01/28/23 01/30/23 History tablet polyethylene glycol 3350 17 gram 8.5 g PO DAILY 01/28/23 01/30/23 History oral powder packet (Miralax) ropinirole 1 mg tablet See Rx Instructions .Route .COMPLEX 01/28/23 01/30/23 History guar gum 0 tbsp PO DAILY 01/30/23 01/30/23 History Patient History Medical History Allergic rhinitis Anemia no known hx blood transfusion Aortic stenosis Moderate aortic stenosis with mild to moderate AR (YASMIN 1.9 to 2.0 cm. Mean gradient 22.8 mmHg) per 08/2018 ECHO Aortic stenosis Aspiration pneumonia BPH (benign prostatic hyperplasia) CAD (coronary artery disease) Cardiomyopathy, hypertrophic Carotid atherosclerosis Chronic constipation Constipation, chronic Depression Depression with anxiety Dyslipidemia Epilepsy GERD (gastroesophageal reflux disease) Hyperactive airway disease Hypertension per records/patient denies Hypertrophic cardiomyopathy LBBB (left bundle branch block) dating back to at least 05/2019 EKG Mild cognitive impairment Mitral and aortic regurgitation Mitral regurgitation Orthostatic hypotension occasional Parkinson's disease Parkinsons disease Pneumonia Prediabetes 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 Last seizure months ago with ?seizure episode 10/27/19 (suspected may have been r/t lightheadedness/orthostasis with standing) Small bowel obstruction Urinary incontinence Vitamin B12 deficiency Vitamin D deficiency Volvulus hx Surgical History History of colonoscopy History of esophagogastroduodenoscopy (EGD) History of open sigmoidectomy (05/2018) Ex-lap sigmoid resection: 06/11/18: Grade view 2/3, MAC 3.0, ETT 8.0 at [facility] secondary to volvulus History of tonsillectomy S/P aortic valve and mitral valve replacement (05/26/21) S/P hernia repair (10/2019) R inguinal hernia S/P percutaneous endoscopic gastrostomy (PEG) tube placement (07/08/21) [place] teeth extracted Family History Mother , age 68 of ovarian cancer. Ovarian cancer Colorectal cancer Father , age 83 with congestive heart failure and had Parkinson's disease since age 70. CHF (congestive heart failure) Parkinson disease Uncle Myocardial infarction Uncle Myocardial infarction Son Diabetes Other Coronary heart disease Hypertension Denies family history of Breast cancer Lung cancer Social History Smoking Status: Never smoker Second Hand Exposure: Yes; Do You Dip or Chew Tobacco: No; Hx Alcohol Use: Yes Alcohol type: beer Alcohol Intake Frequency: 4 or More x per/Week Hx Substance Use: No Preferred Language: Scottish Communication Ability: Effective Visual Impairment: No Limitations Hearing Ability: Use of Hearing Aid [id number] Armor Crewman Required: No Beliefs That Will Affect Care: None marital status: Current Living Situation: Spouse current occupational status: retired Other Information That Helps Us Care for You: No other: 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 Feels Safe at Home: Yes Safety Concerns: Feels Safe At This Time Childhood Exposure to Second-Hand Smoke: Yes Diet: regular Diet Comment: regular caffeine: Yes during the past year weight has: increased > 10 lbs Dental Care, Regularly: Yes Physical Activity Frequency: Daily Physical Activity Frequency Comment: walking ,exercise bike Seatbelt Use: always Sunscreen Use: No Assistive Devices: Glasses, Walker and Other Review of Systems Review of Systems: All systems reviewed & are unremarkable except as noted in HPI & below GI symptoms as described elsewhere Physical Exam Physical Exam: Constitutional: Alert, cooperative and in no distress. HEENT: Unremarkable Neck: No jugular venous distention, carotid pulses are normal and equal bilaterally without bruits. Pulmonary: Clear to auscultation bilaterally. Cardiac: Regular rhythm with a grade 2/6 crescendo decrescendo heard best at the right sternal border, a grade 2/6 holosystolic murmur heard best at the apex, no gallop or rub. Abdomen: Soft, nontender with normal bowel sounds. Extremities: No edema. Distal pulses intact. Neurologic: No focal findings. Skin: No rash, ecchymoses or petechiae. Results & Data Vital Signs (Past 12 Hours) Vital Signs Temp Pulse Pulse Resp BP Pulse Ox O2 Del Method 02/01/23 12:00 36.5 C 60 17 100/60 93 Room Air 02/01/23 07:30 49 L 02/01/23 07:30 Room Air 02/01/23 07:50 36.5 C 61 18 180/66 H 96 Room Air Laboratory Results Cardiac Enzymes 02/01/23 Range/Units 07:29 Troponin I High Sens 602.8 H* D (0-20) pg/ml CBC 02/01/23 Range/Units 07:29 WBC 9.44 (4.8-10.8) K/ul RBC 3.70 L (4.70-6.10) M/uL Hgb 11.2 L (14.0-18.0) g/dl Hct 34.1 L (42.0-52.0) % Plt Count 157 (130-400) K/uL Neut # (Auto) 7.70 H (1.40-6.50) K/uL Lymph # (Auto) 0.71 L (1.2-3.4) K/uL Mccormick # (Auto) 0.80 H (0.11-0.59) K/uL Eos # (Auto) 0.17 (0-0.50) K/uL Baso # (Auto) 0.03 (0-0.2) K/uL Comprehensive Metabolic Panel 02/01/23 Range/Units 07:29 Sodium 139 (136-145) mmol/L Potassium 3.4 L (3.5-5.1) mmol/L Chloride 108 H (98-107) mmol/L Carbon Dioxide 24 (21-32) mmol/L BUN 24 H (6-23) mg/dl Creatinine 0.70 D (0.6-1.4) mg/dl Glucose 84 (70-99(Fasting)) mg/dl Calcium 8.0 L (8.6-10.3) mg/dl Intake and Output 02/01/23 02/01/23 02/01/23 06:59 14:59 22:59 Intake Total 426 / 960 688 / 688 Output Total 250 / 1001 626 / 626 Balance 176 / -41 62 / 62 Intake: IV 326 / 760 218 / 218 Ampicillin/Sulbactam Sod 3,000 216 / 540 108 / 108 mg In 0.9 % Sodium Chloride 100 ml @ 200 mls/hr IV Q6H [facility] Rx# :[id number] Doxycycline Hyclate 100 mg In 110 / 220 110 / 110 Dextrose 5% 100 ml @ 50 mls/hr IV Q12H [facility] Rx#:[id number] Oral 100 / 200 470 / 470 Output: Urine 225 / 225 Urine Amount (Catheter) 250 / 1000 400 / 400 External 250 / 1000 400 / 400 # Bowel Movements Other: Weight 53.4 kg Diagnostic Findings Telemetry: Sinus rhythm with a sinus arrhythmia and premature atrial beats. PG Care Time/CCT Total # of Minutes Spent Total Time Spent with Patient: Total time spent is greater than 50% in coordination of care (as documented) at patient's floor/unit and/or counseling patient: Coding Level of Care Code 25729 INT INP/OBS CARE 3/75MIN Diagnoses Elevated troponin R77.8 CAD (coronary artery disease) I25.10 Hypertrophic cardiomyopathy I42.2 S/P aortic valve and mitral valve replacement Z95.2
--- NOTE | 2023-02-01 22:08 | Electrocardiogram Report ---
Test Reason : Blood Pressure : / mmHG Vent. Rate : 062 BPM Atrial Rate : 080 BPM P-R Int : 284 ms QRS Dur : 154 ms QT Int : 496 ms P-R-T Axes : 020 -27 129 degrees QTc Int : 503 ms Sinus rhythm with 1st degree A-V block with Premature atrial complexes Left bundle branch block Abnormal ECG When compared with ECG of 30-JAN-2023 11:05, Premature atrial complexes are now Present Nonspecific T wave abnormality now evident in Anterior leads Confirmed by Rizwan Alcantara ([id number]) on 02/01/2023 10:08:06 PM Referred By: Geraldine Zaman Confirmed By:Rizwan Alcantara
--- NOTE | 2023-02-01 22:13 | XRay Report ---
KUB CLINICAL HISTORY: Abdominal distention. FINDINGS: 3 AP, portable, supine abdominal radiographs are compared to study dated 09/25/2020 and cor related with abdominal CT dated 01/30/2023. Again seen is marked gaseous distention of the colon. This is similar to the 01/30/2023 CT scan. There is at least mild fecal retention. No evidence of intraperit ruiz free air is seen on these supine images. There are no abnormal abdominal calcifications. Epicar dial pacing leads are in place. Phleboliths are seen in the pelvis. The skeletal structures are osteo penic and appear intact. There is lumbosacral spondylosis and scoliosis. IMPRESSION: 1. Marked gaseous distention of the colon is similar to recent prior examinations and likely represen ts colonic ileus/pseudoobstruction. Distal colonic obstruction could appear similar and clinical ladonna elation will be required. 2. No evidence of intraperitoneal free air is seen on these supine images. Electronically signed by: Shiv Hernadez M.D. 02/01/2023 10:10 PM
--- NOTE | 2023-02-01 22:14 | Hospitalist Progress Note ---
Date of Service February 01, 2023 Assessment & Plan (1) Acute respiratory failure with hypoxia: Plan: Suspect ileus leading to aspiration and subsequent pneumonitis/pneumonia leading to acute hypoxic respiratory failure. Acute, improving but not resolved -Continue to titrate oxygen goal 94% -Admit CT and chest xray today showing BL multifocal airway disease with R>L, procal is elevated at 2.46 with a significant leukocytosis and left shift -Continued on Unasyn, slowly improving. Target Augmentin for p.o. conversion when ready for discharge -Blood cultures obtained, continue to follow -Continue budesonide, prn albuterol for wheezing/SOB, incentive spirometry, flu tter therapy, prn robitussin/mucinex -BL SCD's and SQ heparin for DVT PPX -This appeared to have resolved. will monitor as patient is now on room air. continue amp/sulbactam (2) Aspiration pneumonia: Plan: -Aspiration peculations ordered, tx as noted (3) Ileus: Plan: -Noted on CT abd/pelvis -Bowels are progressing, but patient still hypoactive and abdomen to starting to become soft. Slowly advance diet as tolerated, hold if worsening distention or nausea develop -Has chronic constipation -bowels continue to move. Continue twice daily MiraLAX, defer additional enemas follow progression will advance diet. (4) Encephalopathy: Plan: -Initially oriented to [facility] in 2021 on admit, patient is improving he is oriented to name, [place], and 2022 at bedside - states he is normally alert and oriented completely -No focal defects, likely due to his acute illness and hx of Parkinosn's with mild memory deficit -Continue to monitor for improvement with treatment of his illness (5) Elevated troponin: Plan: -Initial high sen trop elevated at 182 -The patient is asymptomatic and without acute changes on ECG -Likely due to demand from his acute illness and hypoxia -Troponin downtrending Echo with EF 60-65%, septal motion consistent with postoperative state, no significant change compared to prior. Consistent with demand reached out to cardio on 02/01, no further workup requird at this time reviewed blood work: troponin (6) Peripheral arterial disease: Plan: -Continue aspirin and atorvastatin (7) CAD (coronary artery disease): Plan: -Continue aspirin (8) Epilepsy: Plan: -Continue BID Carbamazepine (9) GERD (gastroesophageal reflux disease): Plan: -Continue IV Protonix daily for now until his constipation/ileus has resolved (10) BPH (benign prostatic hyperplasia): Plan: -Continue flomax (11) Hyperactive airway disease: Plan: -Continue budesonide and prn albuterol (12) Parkinson's disease: Plan: -Continue 1.5 tabs Carbidopa-levodopa QID Plan Patient clinically improving. Slowly advance diet as tolerated, caution aggressive increase with history of chronic constipation and ileus. Bowel movements are continuing, will defer enemas and continue MiraLAX. Continue treatment for aspiration pneumonia, PT/OT.Patient's is at bedside, they report they do not wish to pursue any type of rehab and want him to be strong enough to return home with assistance. Note that he is currently improving, but still ill and more weak than his baseline which is also impaired due to history of parkinsonism. Possible discharge over weekend. Admission and Anticipated Discharge Date Admission Date: January 30, 2023 Subjective Patient continues to have bowel movements today. is at bedside and is updated. is concerned that patient did not receive PT today. Answered all of her questions. Review of Systems Review of Systems: All systems reviewed & are unremarkable except as noted in HPI & below Physical Exam Physical Exam: General: Alert and oriented to name, year no acute distress. Appears fatigued but nontoxic HEENT: Atraumatic, normocephalic. Vision and hearing grossly intact Pulm: CTAB A&P. -wheezes, -rales, -rhonchi. Symmetrical chest rise. No increased work of breathing. No respiratory distress. Cardiac: RRR, -mrg. Radial pulses intact and symmetrical. Abdominal: Distended, but soft. nontender Extremities: Resting tremor in hands and feet bilaterally. Sensation intact to soft touch in hands and feet. No edema Results & Data Results & Data Vital Signs (Past 12 Hours) Vital Signs Temp Pulse Pulse Resp BP BP Pulse Ox 02/01/23 19:25 02/01/23 19:42 36.6 C 51 L 18 142/78 H 95 02/01/23 15:08 36.6 C 65 20 130/71 95 02/01/23 12:00 36.5 C 60 17 100/60 93 O2 Del Method 02/01/23 19:25 Room Air 02/01/23 19:42 Room Air 02/01/23 15:08 Room Air 02/01/23 12:00 Room Air PG Care Time/CCT Total # of Minutes Spent Total Time Spent with Patient: Total time spent is greater than 50% in coordination of care (as documented) at patient's floor/unit and/or counseling patient: Coding Level of Care Code 29544 SUB INP/OBS CARE 3/50MIN Diagnoses Acute respiratory failure with hypoxia J96.01 Aspiration pneumonia J69.0 Ileus K56.7 Encephalopathy G93.40 Elevated troponin R77.8 Peripheral arterial disease I73.9 CAD (coronary artery disease) I25.10 Epilepsy G40.909 GERD (gastroesophageal reflux disease) K21.9 BPH (benign prostatic hyperplasia) N40.0 Hyperactive airway disease J45.909 Parkinson's disease G20
[2023-02-02] MEDS: MELATONIN 3 MG TAB PO PRN (00:58)
[2023-02-02] MEDS: AMPICILLIN/SULBACTAM SOD 3,000 MG in 0.9 % SODIUM CHLORIDE 100 ML IV SCH ×4 (05:31→23:36)
[2023-02-02] MEDS: HEPARIN SOD 5,000 UNIT/0.5 ML VIAL SQ SCH ×3 (06:40→23:35)
[2023-02-02 07:11] LABS: Basophils # (auto) 0.03 K/uL (0-0.2); Basophils % (auto) 0.4 %; Eosinophils # (auto) 0.22 K/uL (0-0.50); Eosinophils % (auto) 2.7 %; Hematocrit (blood only) 36.2 % (42.0-52.0); Hemoglobin 12.1 g/dl (14.0-18.0); Immature Granulocytes # (auto) 0.03 K/uL (0.01-0.20); Immature Granulocytes % (auto) 0.4 %; Lymphocytes # (auto) 1.05 K/uL (1.2-3.4); Lymphocytes % (auto) 12.9 %; Mean Corpuscular Hgb Conc 33.4 g/dL (32.0-36.0); Mean Corpuscular Volume 89.8 fL (80.0-100.0); Mean Platelet Volume 10.5 fL (9.4-12.4); Monocytes # (auto) 0.78 K/uL (0.11-0.59); Monocytes % (auto) 9.6 %; Platelet Count 178 K/uL (130-400); RDW Coefficient of Variation 14.2 % (11.5-14.5); RDW Standard Deviation 46.5 fL (36.4-46.3); Red Blood Count 4.03 M/uL (4.70-6.10); White Blood Count 8.11 K/ul (4.8-10.8)
[2023-02-02 07:38] LABS: BUN Creatinine Ratio 27.1 (10-20); Calcium 8.1 mg/dl (8.6-10.3); Creatinine Clr Calc Pharmacy 67.8 ml/min; Est GFR (African American) 106.2 ml/min; Est GFR (Non-African American) 91.7 ml/min; Potassium 3.2 mmol/L (3.5-5.1)
[2023-02-02] MEDS: CARBIDOPA/LEVODOPA 25/100MG TAB PO SCH ×4 (07:44→21:35)
[2023-02-02] MEDS: busPIRone 5 MG TAB PO SCH ×2 (07:44→21:34)
[2023-02-02] MEDS: rOPINIRole HCL 1 MG TABLET PO SCH ×3 (07:45→21:34)
[2023-02-02] MEDS: TAMSULOSIN HCL 0.4 MG CAP PO SCH (07:47)
[2023-02-02] MEDS: FLUoxetine HCL 20 MG CAP PO SCH (07:47)
[2023-02-02] MEDS: ASPIRIN 81 MG ECTAB PO SCH (07:48)
[2023-02-02] MEDS: POLYETHYLENE (MIRALAX) 17 GM PACK PO SCH ×2 (07:48→21:35)
[2023-02-02] MEDS: FLUTICASONE/VILANTEROL 100/25MCG 14 PUFFS/INHALER INH SCH (07:48)
[2023-02-02] MEDS: PANTOprazole 40 MG in SYRINGE 0 ML IV SCH (10:25)
[2023-02-02] MEDS: DOXYCYCLINE HYCLATE 100 MG in DEXTROSE 5% 100 ML IV SCH (11:10)
[2023-02-02] MEDS ORDERED: POTASSIUM CHLORIDE / WTR 10 MEQ/100 ML PLCT IV SCH (13:45)
--- NOTE | 2023-02-02 13:54 | Hospitalist Progress Note ---
Date of Service February 02, 2023 Assessment & Plan (1) Acute respiratory failure with hypoxia: Plan: Suspect ileus leading to aspiration and subsequent pneumonitis/pneumonia leading to acute hypoxic respiratory failure. Acute, improving but not resolved -Continue to titrate oxygen goal 94% -Admit CT and chest xray today showing BL multifocal airway disease with R>L, procal is elevated at 2.46 with a significant leukocytosis and left shift -Continued on Unasyn, slowly improving. Target Augmentin for p.o. conversion when ready for discharge -Blood cultures obtained, continue to follow -Continue budesonide, prn albuterol for wheezing/SOB, incentive spirometry, flu tter therapy, prn robitussin/mucinex -BL SCD's and SQ heparin for DVT PPX -This appeared to have resolved. will monitor as patient is now on room air. continue amp/sulbactam/ doxy (2) Aspiration pneumonia: Plan: -Aspiration peculations ordered, tx as noted (3) Ileus: Plan: -Noted on CT abd/pelvis -Bowels are progressing, but patient still hypoactive and abdomen to starting to become soft. Slowly advance diet as tolerated, hold if worsening distention or nausea develop -Has chronic constipation -bowels continue to move. Continue twice daily MiraLAX, defer additional enemas follow progression tolerating low fiber diet, appears less distended on 02/03 consulted GI for further input. Ordered IV fluids/ potasium to supplemnt his hypokalemia (4) Encephalopathy: Plan: -Initially oriented to [facility] in 2021 on admit, patient is improving he is oriented to name, [place], and 2022 at bedside - states he is normally alert and oriented completely -No focal defects, likely due to his acute illness and hx of Parkinosn's with mild memory deficit -Continue to monitor for improvement with treatment of his illness (5) Elevated troponin: Plan: -Initial high sen trop elevated at 182 -The patient is asymptomatic and without acute changes on ECG -Likely due to demand from his acute illness and hypoxia -Troponin downtrending Echo with EF 60-65%, septal motion consistent with postoperative state, no significant change compared to prior. Consistent with demand reached out to cardio on 02/01, no further workup requird at this time reviewed blood work: troponin (6) Peripheral arterial disease: Plan: -Continue aspirin and atorvastatin (7) CAD (coronary artery disease): Plan: -Continue aspirin (8) Epilepsy: Plan: -Continue BID Carbamazepine (9) GERD (gastroesophageal reflux disease): Plan: -Continue IV Protonix daily for now until his constipation/ileus has resolved (10) BPH (benign prostatic hyperplasia): Plan: -Continue flomax (11) Hyperactive airway disease: Plan: -Continue budesonide and prn albuterol (12) Parkinson's disease: Plan: -Continue 1.5 tabs Carbidopa-levodopa QID Plan Patient clinically improving. Slowly advance diet as tolerated, caution ag gressive increase with history of chronic constipation and ileus. Bowel movements are continuing, will defer enemas and continue MiraLAX. Continue treatment for aspiration pneumonia, PT/OT.Patient's is at bedside, they report they do not wish to pursue any type of rehab and want him to be strong enough to return home with assistance. Note that he is currently improving, but still ill and more weak than his baseline which is also impaired due to history of parkinsonism. will likely need placement. Admission and Anticipated Discharge Date Admission Date: January 30, 2023 Subjective Patient reports feeling less bloated today. He is undecided if he wants to go to therapy today. Review of Systems Review of Systems: All systems reviewed & are unremarkable except as noted in HPI & below Physical Exam Physical Exam: General: Alert and oriented to name, year no acute distress. Appears fatigued but nontoxic HEENT: Atraumatic, normocephalic. Vision and hearing grossly intact Pulm: CTAB A&P. -wheezes, -rales, -rhonchi. Symmetrical chest rise. No increased work of breathing. No respiratory distress. Cardiac: RRR, -mrg. Radial pulses intact and symmetrical. Abdominal: Appears less distended, but soft. nontender Extremities: Resting tremor in hands and feet bilaterally. Sensation intact to soft touch in hands and feet. No edema Results & Data Results & Data Vital Signs (Past 12 Hours) Vital Signs Temp Pulse Pulse Resp BP Pulse Ox O2 Del Method 02/02/23 11:32 36.9 C 87 18 120/68 96 Room Air 02/02/23 08:00 Room Air 02/02/23 07:39 36.8 C 50 L 18 162/88 H 96 Room Air 02/02/23 07:00 52 L PG Care Time/CCT Total # of Minutes Spent Total Time Spent with Patient: Total time spent is greater than 50% in coordination of care (as documented) at patient's floor/unit and/or counseling patient: Coding Level of Care Code 12742 SUB INP/OBS CARE 2/35MIN Diagnoses Acute respiratory failure with hypoxia J96.01 Aspiration pneumonia J69.0 Ileus K56.7 Encephalopathy G93.40 Elevated troponin R77.8 Peripheral arterial disease I73.9 CAD (coronary artery disease) I25.10 Epilepsy G40.909 GERD (gastroesophageal reflux disease) K21.9 BPH (benign prostatic hyperplasia) N40.0 Hyperactive airway disease J45.909 Parkinson's disease G20
[2023-02-02] MEDS ORDERED: POTASSIUM CHLORIDE 40 MEQ in SODIUM CHLORIDE 0.9% 1000ML 1,000 ML IV SCH (14:15)
--- NOTE | 2023-02-02 14:54 | XRay Report ---
KUB HISTORY: constipation COMPARISON: KUB 02/01/2023. FINDINGS: No significant change in the severe gaseous distention of the colon. No renal calculi. No ureteral calculi. Calcifications in the deep pelvis likely represent phleboliths. Epicardial pacing l eri are again noted. No pneumoperitoneum or pneumatosis. There are poststernotomy changes. IMPRESSION: No significant change in the severe gaseous distention of the colon. ACT 112: Negative or not required by law. Electronically signed by: Yeison Lawson M.D. 02/02/2023 2:53 PM
--- NOTE | 2023-02-02 16:10 | Gastrointestinal Consultation ---
Date of Consultation February 02, 2023 Assessment & Plan (1) Paralytic ileus of small intestine and colon: He has a chronic ileus involving the colon from what I can discern. Symptomatically he isn't too bad now. I think since he tolerates regular diet I would continue with that and as much ambulation as he can tolerate. There is not much other intervention other than laxatives and enemas as needed. History of Present Illness Reason for Consultation: gastric dysmotility Attending Physician: Miguel Angel Conner History of Present Illness 77 year old man with significant Parkinson's and chronic "colonic ileus". I am asked to see him for dysmotility. He tells me that for the past week he has felt nauseated and on Saturday he vomited a couple of times. However over the past day or so his nausea is gone and his abdomen feels back to normal. He is able to eat a regular diet without difficulty today. He got up and walked a little t hansel as well. Apparently he has had a feeding tube recently removed although he told me he has never had a feeding tube except for a "long time ago related to a blockage". He says his bowels are moving as well as they usually do. Currently he tells me he feels okay with regards to his gut Allergies Allergy/AdvReac Type Severity Reaction Status Date / Time No Known Drug Allergies Allergy Unknown Verified 01/30/23 12:45 Home Medications Medication Instructions Recorded Confirmed Type fluoxetine 40 mg capsule 40 mg PO QAM 05/19/21 01/30/23 History aspirin 81 mg tablet,delayed 81 mg PO QAM 12/19/21 01/30/23 History release (Shiva Low Dose Aspirin) buspirone 10 mg tablet 10 mg PO BID 12/19/21 01/30/23 History fluticasone furoate 100 1 inh inhalation DAILY #60 ea 03/22/22 01/30/23 Rx mcg-vilanterol 25 mcg/dose inhalation powder (Breo Ellipta) albuterol sulfate 90 mcg/actuation 2 puff inhalation Q8H PRN 04/26/22 01/30/23 Rx aerosol inhaler shortness of breath or wheezing #18 grams tamsulosin 0.4 mg capsule (Flomax) 0.4 mg PO DAILY #90 caps 05/11/22 01/30/23 Rx albuterol sulfate 2.5 mg/3 mL 2.5 mg (3 mL) inhalation QID PRN 07/30/22 01/30/23 Rx (0.083 %) solution for nebulization shortness of breath or wheezing #180 mL compressor, for nebulizer #1 ea 07/30/22 01/30/23 Rx famotidine 20 mg tablet 20 mg PO DAILY #90 tabs 09/07/22 01/30/23 Rx omeprazole 20 mg capsule,delayed 20 mg PO HS 09/18/22 01/30/23 History release fluticasone propionate 50 1 spray intranasal BID #48 grams 10/18/22 01/30/23 Rx mcg/actuation nasal spray,suspension atorvastatin 40 mg tablet 40 mg PO Q OTHER DAY #45 tabs 11/15/22 01/30/23 Rx carbamazepine 300 mg 300 mg PO BID #60 caps 11/15/22 01/30/23 Rx capsule,extended release [id number] CBD Gummies 2 tab PO DAILY 01/28/23 01/30/23 History carbidopa 25 mg-levodopa 100 mg See Rx Instructions PO .COMPLEX 01/28/23 01/30/23 History tablet ondansetron 4 mg disintegrating 4 mg PO Q8H PRN Nausea 01/28/23 01/30/23 History tablet polyethylene glycol 3350 17 gram 8.5 g PO DAILY 01/28/23 01/30/23 History oral powder packet (Miralax) ropinirole 1 mg tablet See Rx Instructions .Route .COMPLEX 01/28/23 01/30/23 History guar gum 0 tbsp PO DAILY 01/30/23 01/30/23 History Patient History Medical History (Updated 02/02/23 @ 16:09 by Adarsh Arana Jr, MD) Allergic rhinitis Anemia no known hx blood transfusion Aortic stenosis Moderate aortic stenosis with mild to moderate AR (YASMIN 1.9 to 2.0 cm. Mean gradient 22.8 mmHg) per 08/2018 ECHO Aortic stenosis Aspiration pneumonia BPH (benign prostatic hyperplasia) CAD (coronary artery disease) Cardiomyopathy, hypertrophic Carotid atherosclerosis Chronic constipation Constipation, chronic Depression Depression with anxiety Dyslipidemia Epilepsy GERD (gastroesophageal reflux disease) Hyperactive airway disease Hypertension per records/patient denies Hypertrophic cardiomyopathy LBBB (left bundle branch block) dating back to at least 05/2019 EKG Mild cognitive impairment Mitral and aortic regurgitation Mitral regurgitation Orthostatic hypotension occasional Paralytic ileus of small intestine and colon Parkinson's disease Parkinsons disease Pneumonia Prediabetes 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 Last seizure months ago with ?seizure episode 10/27/19 (suspected may have been r/t lightheadedness/orthostasis with standing) Small bowel obstruction Urinary incontinence Vitamin B12 deficiency Vitamin D deficiency Volvulus hx Surgical History History of colonoscopy History of esophagogastroduodenoscopy (EGD) History of open sigmoidectomy (05/2018) Ex-lap sigmoid resection: 06/11/18: Grade view 2/3, MAC 3.0, ETT 8.0 at [facility] secondary to volvulus History of tonsillectomy S/P aortic valve and mitral valve replacement (05/26/21) S/P hernia repair (10/2019) R inguinal hernia S/P percutaneous endoscopic gastrostomy (PEG) tube placement (07/08/21) [place] teeth extracted Family History Mother , age 68 of ovarian cancer. Ovarian cancer Colorectal cancer Father , age 83 with congestive heart failure and had Parkinson's disease since age 70. CHF (congestive heart failure) Parkinson disease Uncle Myocardial infarction Uncle Myocardial infarction Son Diabetes Other Coronary heart disease Hypertension Denies family history of Breast cancer Lung cancer Social History Smoking Status: Never smoker Second Hand Exposure: Yes; Do You Dip or Chew Tobacco: No; Hx Alcohol Use: Yes Alcohol type: beer Alcohol Intake Frequency: 4 or More x per/Week Hx Substance Use: No Preferred Language: Mauritian Communication Ability: Effective Visual Impairment: No Limitations Hearing Ability: Use of Hearing Aid Paid Internship Required: No Beliefs That Will Affect Care: None marital status: Current Living Situation: Spouse current occupational status: retired Other Information That Helps Us Care for You: No other: 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 Feels Safe at Home: Yes Safety Concerns: Feels Safe At This Time Childhood Exposure to Second-Hand Smoke: Yes Diet: regular Diet Comment: regular caffeine: Yes during the past year weight has: increased > 10 lbs Dental Care, Regularly: Yes Physical Activity Frequency: Daily Physical Activity Frequency Comment: walking ,exercise bike Seatbelt Use: always Sunscreen Use: No Assistive Devices: Glasses, Walker and Other Review of Systems Review of Systems: All systems reviewed & are unremarkable except as noted in HPI & below Physical Exam Constitutional: WD/WN, vitals as above + ill appearing; no acute distress Eyes: PERRL, conjunctivae normal, anicteric sclerae ENMT: external ear and nose normal, oropharynx normal Neck: trachea midline, no thyromegaly Respiratory: normal respiratory effort, lungs clear to auscultation Cardiovascular: RRR, no murmur, no edema Gastrointestinal (Abdomen): normal bowel sounds, soft, nontender, no hepatosplenomegaly Musculoskeletal: Extremities: no cyanosis and no clubbing Skin: no rashes, warm and dry Neurologic: PERRL, EOMI, accommodation nl, no face palsy, no dysarthria Motor/Sensory: + tremor Psychiatric: Orientation: alert and oriented x 3 Results & Data Vital Signs (Past 12 Hours) Vital Signs Temp Pulse Pulse Resp BP Pulse Ox O2 Del Method 02/02/23 14:51 49 L 02/02/23 11:32 36.9 C 87 18 120/68 96 Room Air 02/02/23 08:00 Room Air 02/02/23 07:39 36.8 C 50 L 18 162/88 H 96 Room Air 02/02/23 07:00 52 L Laboratory Results 02/02/23 02/02/23 Range/Units 06:48 06:48 WBC 8.11 (4.8-10.8) K/ul RBC 4.03 L (4.70-6.10) M/uL Hgb 12.1 L (14.0-18.0) g/dl Hct 36.2 L (42.0-52.0) % MCV 89.8 (80.0-100.0) fL MCH 30.0 (25.0-34.0) pg MCHC 33.4 (32.0-36.0) g/dL RDW Std Deviation 46.5 H (36.4-46.3) fL RDW Coeff of [place] 14.2 (11.5-14.5) % Plt Count 178 (130-400) K/uL MPV 10.5 (9.4-12.4) fL Immature Gran % (Auto) 0.4 % Neut % (Auto) 74.0 % Lymph % (Auto) 12.9 % [place] % (Auto) 9.6 % Eos % (Auto) 2.7 % Baso % (Auto) 0.4 % Neut # (Auto) 6.00 (1.40-6.50) K/uL Lymph # (Auto) 1.05 L (1.2-3.4) K/uL [place] # (Auto) 0.78 H (0.11-0.59) K/uL Eos # (Auto) 0.22 (0-0.50) K/uL Baso # (Auto) 0.03 (0-0.2) K/uL Immature Gran # (Auto) 0.03 (0.01-0.20) K/uL Sodium 140 (136-145) mmol/L Potassium 3.2 L (3.5-5.1) mmol/L Chloride 107 (98-107) mmol/L Carbon Dioxide 25 (21-32) mmol/L Anion Gap 8 (3-11) BUN 19 (6-23) mg/dl Creatinine 0.70 (0.6-1.4) mg/dl Est Cr Clr Drug Dosing 67.8 ml/min Est GFR ( Amer) 106.2 ml/min Est GFR (Non-Af Amer) 91.7 ml/min BUN/Creatinine Ratio 27.1 H (10-20) Glucose 81 (70-99(Fasting)) mg/dl Calcium 8.1 L (8.6-10.3) mg/dl Diagnostic Findings Abdomen/Pelvis CT 01/30/23 09:55 CT SCAN OF THE ABDOMEN AND PELVIS WITH IV CONTRAST CLINICAL HISTORY: Generalized abdominal pain. Fever. COMPARISON STUDY: Abdominal CT dated 01/29/2023, 01/15/2012, and 09/24/2020. TECHNIQUE: Following the IV administration of 88 cc of Optiray 320, CT scan of the abdomen and pelvis is performed from the lung bases to the proximal femora. Images are reviewed in the axial, sagittal, and coronal planes. IV contrast was administered without complication. A dose lowering technique was utilized adhering to the principles of ALARA. The examination is degraded by motion artifact. CT DOSE: 294.25 mGy.cm FINDINGS: Lung bases: The heart is enlarged and without pericardial effusion. The coronary arteries, aortic valve leaflets, and mitral annulus are densely calcified. Interval airspace consolidation is seen at the lung bases, right greater than left. No pleural effusion is identified. There is a small hiatal hernia. Liver: Evaluation of the liver is degraded by streak and motion artifact. The contrast-enhanced liver is normal in size, contour, and attenuation. There is no intrahepatic biliary ductal dilatation. The hepatic veins and portal veins are patent. Gallbladder: Grossly unremarkable. Spleen: Normal in size and attenuation. Pancreas: Grossly unremarkable but not well assessed. Adrenal glands: Unremarkable. Kidneys: The contrast enhanced kidneys are normal in size and without hydronephrosis. The kidneys enhance symmetrically. The renal collecting systems and ureters are filled with excreted IV contrast. 3.8 cm cyst arising from the lower pole of the right kidney. Abdominal vasculature: The abdominal aorta is normal in course and caliber noting advanced atherosclerotic calcification. Bowel: There is severe rectosigmoid fecal impaction. There is rectal wall thickening and mild surrounding infiltration. The appearance suggests stroke with proctitis. There is significant distention of the upstream colon which measures up to 10 cm in diameter. There is a twisted appearance of the mesentery in the right lower quadrant. This is of undetermined significance. There is no clear evidence of colonic volvulus. Residual enteric contrast is noted in the colon. No pneumatosis intestinalis or portal venous gas is identified. The small bowel loops are normal in caliber. The appendix is not visualized. Peritoneum: There is no intraperitoneal free air or abdominal ascites. Lymphadenopathy: None. Pelvic viscera: The bladder is distended and filled with excreted IV contrast. The wall is thickened/trabeculated indicating chronic outlet obstruction. There are tiny bladder diverticula. The prostate gland is mildly enlarged and heterogeneous. Skeletal structures: The skeletal structures are osteopenic. There is moderate to advanced lumbosacral spondylosis. There are mild acute to subacute superior endplate compression fractures of T11 and T12. No lytic or blastic lesions are seen. The patient is status post midline sternotomy. There are subacute appearing right 9th through 10th rib fractures. IMPRESSION: 1. Significantly motion compromised examination. 2. Multifocal bibasilar airspace consolidation, right greater than left. The appearance is typical for pneumonia/aspiration pneumonitis. Clinical correlation and radiographic follow-up is recommended. 3. There is severe rectosigmoid fecal impaction and constipation. There is mild rectal wall thickening with surrounding infiltration. Correlate clinically for evidence of stercoral proctitis. 4. The upstream colon is markedly distended. Fecal impaction may cause functional obstruction of the colon. Colonic ileus could appear similar. 5. There is swelling of the mesentery in the right lower quadrant which is of indeterminate significance. The small bowel loops are normal in caliber, and the small bowel obstruction seen on 01/29/2023 has resolved. This may cause intermittent small bowel obstruction. 6. No intraperitoneal free air is seen and there is no pneumatosis intestinalis. 7. Cardiomegaly. 8. There are subacute appearing right rib fractures, as well as acute to subacute superior endplate compression fractures of T11 and T12. 9. Additional findings as above. ACT 112: Negative or not required by law. Electronically signed by: Shiv Hernadez M.D. 01/30/2023 12:50 PM Chest X-Ray 01/30/23 09:55 SINGLE VIEW CHEST CLINICAL HISTORY: Generalized abdominal pain. FINDINGS: An AP, portable, upright chest radiograph is compared to study dated 04/09/2012 and correlated with chest CT dated 08/01/2018. The examination is degraded by portable technique and apical positioning. The patient is status post midline sternotomy. The heart is enlarged noting atherosclerotic calcification of the thoracic aorta. The pulmonary vasculature is noncongested. Mild airspace opacities are seen in the right mid to lower lung. Scarring/atele ctasis is noted at the lung bases. No large pleural effusion or pneumothorax is identified. The skeletal structures are osteopenic. The bony thorax is grossly intact. IMPRESSION: 1. Cardiomegaly without radiographic evidence of congestive failure. 2. Mild airspace opacities are seen in the right mid to lower lung. Correlate clinically for evidence of a mild pneumonitis. Radiographic follow-up to resolution is recommended. ACT 112: Negative or not required by law. Electronically signed by: Shiv Hernadez M.D. 01/30/2023 10:57 AM KUB X-Ray 02/02/23 13:52 KUB HISTORY: constipation COMPARISON: KUB 02/01/2023. FINDINGS: No significant change in the severe gaseous distention of the colon. No renal calculi. No ureteral calculi. Calcifications in the deep pelvis likely represent phleboliths. Epicardial pacing leads are again noted. No pneumoperitoneum or pneumatosis. There are poststernotomy changes. IMPRESSION: No significant change in the severe gaseous distention of the colon. ACT 112: Negative or not required by law. Electronically signed by: Yeison Lawson M.D. 02/02/2023 2:53 PM
[2023-02-03] MEDS: DOXYCYCLINE HYCLATE 100 MG in DEXTROSE 5% 100 ML IV SCH ×2 (00:13→11:19)
[2023-02-03] MEDS: MELATONIN 3 MG TAB PO PRN (01:21)
[2023-02-03] MEDS: AMPICILLIN/SULBACTAM SOD 3,000 MG in 0.9 % SODIUM CHLORIDE 100 ML IV SCH ×2 (06:04→10:39)
[2023-02-03] MEDS: HEPARIN SOD 5,000 UNIT/0.5 ML VIAL SQ SCH ×2 (06:04→15:18)
[2023-02-03] MEDS: rOPINIRole HCL 1 MG TABLET PO SCH ×2 (08:21→12:11)
[2023-02-03] MEDS: CARBIDOPA/LEVODOPA 25/100MG TAB PO SCH ×3 (08:21→15:19)
[2023-02-03] MEDS: busPIRone 5 MG TAB PO SCH (08:22)
[2023-02-03] MEDS: ATORVASTATIN 40 MG TAB PO SCH (08:23)
[2023-02-03] MEDS: FLUoxetine HCL 20 MG CAP PO SCH (08:23)
[2023-02-03] MEDS: ASPIRIN 81 MG ECTAB PO SCH (08:23)
[2023-02-03] MEDS: POLYETHYLENE (MIRALAX) 17 GM PACK PO SCH (08:23)
[2023-02-03] MEDS: FLUTICASONE/VILANTEROL 100/25MCG 14 PUFFS/INHALER INH SCH (08:23)
[2023-02-03] MEDS: TAMSULOSIN HCL 0.4 MG CAP PO SCH (08:23)
[2023-02-03] MEDS ORDERED: POTASSIUM CHLORIDE CRTAB 20 MEQ TABCR PO STA (10:24)
[2023-02-03] MEDS: PANTOprazole 40 MG in SYRINGE 0 ML IV SCH (10:40)
--- NOTE | 2023-02-03 10:44 | Gastroenterology Progress Note ---
Date of Service February 03, 2023 Assessment & Plan (1) Paralytic ileus of small intestine and colon: Plan: Seems to be doing as well as can be expected from ileus standpoint. No further recommendations. Will sign off. Please reconsult as needed Admission and Anticipated Discharge Date Admission Date: January 30, 2023 Subjective smiling, says he feels good--almost normal. No nausea. No abdominal pain. Moved bowels last night. Physical Exam Physical Exam: He looks well, much less tremor Constitutional: WD/WN, vitals as above Results & Data Vital Signs (Past 12 Hours) Vital Signs Temp Pulse Pulse Resp BP BP Pulse Ox 02/03/23 07:41 36.7 C 57 L 20 192/86 H 186/93 H 94 02/03/23 04:47 44 L 02/03/23 03:30 36.3 C L 53 L 18 180/74 H 96 O2 Del Method 02/03/23 07:41 Room Air 02/03/23 04:47 02/03/23 03:30 Room Air
[2023-02-03 10:56] LABS: Hematocrit (blood only) 38.1 % (42.0-52.0); Hemoglobin 12.6 g/dl (14.0-18.0); Mean Corpuscular Hemoglobin 30.1 pg (25.0-34.0); Mean Corpuscular Hgb Conc 33.1 g/dL (32.0-36.0); Mean Corpuscular Volume 90.9 fL (80.0-100.0); Mean Platelet Volume 10.6 fL (9.4-12.4); Platelet Count 223 K/uL (130-400); RDW Coefficient of Variation 14.3 % (11.5-14.5); RDW Standard Deviation 47.7 fL (36.4-46.3); Red Blood Count 4.19 M/uL (4.70-6.10); White Blood Count 8.19 K/ul (4.8-10.8)
[2023-02-03 10:59] LABS: BUN Creatinine Ratio 28.1 (10-20); C Reactive Protein 6.67 mg/dl (0-0.5); Calcium 8.3 mg/dl (8.6-10.3); Creatinine Clr Calc Pharmacy 74.2 ml/min; Est GFR (African American) 110.2 ml/min; Est GFR (Non-African American) 95.1 ml/min; Potassium 3.3 mmol/L (3.5-5.1)
--- NOTE | 2023-02-03 16:02 | Discharge Summary ---
Date of Service February 03, 2023 Admission HPI Per Admitting Provider Rashi is a 77 year old male with a PMH significant for advanced parkinson's disease with dementia, hx of colonic volvulus S/P partial colectomy at [facility] approximately 6 years ago, colonic ileus with previous PEG tube S/P removal at [facility] in 2021, hypertrophic cardiomyopathy s/p septal myectomy, aortic and mitral regurgitation, aortic stenosis, s/p AVR and MVR who presented to the [facility] ED on 01/30/23 due to concerns for abd distention, chronic constipation and possible bowel obstruction on outpatient CT. In the ED he was noted to be hypoxic in the low 90's on RA, febrile at 38C, but was otherwise stable. Labs were significant for a leukocytosis of 14 with left shift of 13, cr of 1.11 (baseline is near 0.8), BUN of 37, initial high sen trop of 182, and full resp biofire negative. CT of the abd/pelvis w/IV con shows multifocal airspace disease concerning for aspiration pneumonia, severe rectosigmoid fecal impaction/constipation with possible stercoral proctitis, and resolution of the SBO seen on imaging yesterday. Prior to admission the patient was given 1.5L NSS, a dose of Cefepime, 1gm IV tylenol, a duoneb treatment, and 4 mg iv zofran. At the time of the exam the patient was resting in bed in no acute distress with his standing bedside, history was primarily obtained from the patient's due to increased confusion of the patient. She states that they both had a URI last week but she has recovered. He continued to have a non productive cough over the past week. He had been constipated fro 3+ days earlier in the week so they escalated his bowel regimen like normal with senna and a daily OTC suppository for 2 days straight, he had a large BM approximately 2 days ago. The patient has then been constipated with increased ABD distention over the past 48 hours. He has had 2 episodes of non-bloody emesis at home, since the his cough has increased. He was noted to have the SBO on CT from yesterday, which is why they were told to come in. When asked, the patient's only complaint is his cough. He was febrile at home but has not had chills. His notes that his baseline tremors can be severe at times. He denies chest pain, SOB, abd pain, nausea, vomiting, dysuria, hematuria, melena, and recent trauma. His thinks his abd is currently a little softer than prior to arrival. He had his am dose of Sinemet but not Carbamazepine. We discussed code status, he is currently a Full code and would want his to make medical decisions for him if he could not make them himself. Please refer to Dr. Muñoz's attestation for any changes to the treatment plan Principal Diagnosis Ileus Discharge Exam General: Alert and oriented to name, year no acute distress. Appears fatigued but nontoxic HEENT: Atraumatic, normocephalic. Vision and hearing grossly intact Pulm: CTAB A&P. -wheezes, -rales, -rhonchi. Symmetrical chest rise. No increased work of breathing. No respiratory distress. Cardiac: RRR, -mrg. Radial pulses intact and symmetrical. Abdominal: Appears less distended, but soft. nontender Extremities: Resting tremor in hands and feet bilaterally. Sensation intact to soft touch in hands and feet. No edema Discharge Data Allergies Allergy/AdvReac Type Severity Reaction Status Date / Time No Known Drug Allergies Allergy Unknown Verified 01/30/23 12:45 Consultations 01/30/23 13:11 ED Decision to Admit Stat 02/01/23 07:40 Consult Cardiology Routine 02/02/23 13:56 Consult Gastroenterology Routine Ordered Studies 01/30/23 09:55 CT abd pelvis IV con only Stat Hospital Course (1) Acute respiratory failure with hypoxia: Suspect ileus leading to aspiration and subsequent pneumonitis/pneumonia leading to acute hypoxic respiratory failure. Acute, improving but not resolved -Continue to titrate oxygen goal 94% -Admit CT and chest xray today showing BL multifocal airway disease with R>L, procal is elevated at 2.46 with a significant leukocytosis and left shift -Continued on Unasyn, slowly improving. Target Augmentin for p.o. conversion when ready for discharge -Blood cultures obtained, continue to follow -Continue budesonide, prn albuterol for wheezing/SOB, incentive spirometry, flutter therapy, prn robitussin/mucinex -BL SCD's and SQ heparin for DVT PPX -This appeared to have resolved. On room air On amp/sulbactam/ doxy, will discharge on augmentin and doxy for 3 additional doses to complete course. (2) Aspiration pneumonia: -Aspiration peculations ordered, tx as noted (3) Ileus: -Noted on CT abd/pelvis -Bowels are progressing, but patient still hypoactive and abdomen to starting to become soft. Slowly advance diet as tolerated, hold if worsening distention or nausea develop -Has chronic constipation -bowels continue to move. Continue twice daily MiraLAX, defer additional enemas follow progression tolerating low fiber diet, appears less distended on 02/03 appreciate input from GI. will continue bowel regimen as noted below. (4) Encephalopathy: -Initially oriented to [facility] in 2021 on admit, patient is improving he is oriented to name, [place], and 2022 at bedside - states he is normally alert and oriented completely -No focal defects, likely due to his acute illness and hx of Parkinosn's with mild memory deficit -improved. (5) Elevated troponin: -Initial high sen trop elevated at 182 -The patient is asymptomatic and without acute changes on ECG -Likely due to demand from his acute illness and hypoxia -Troponin downtrending Echo with EF 60-65%, septal motion consistent with postoperative state, no significant change compared to prior. Consistent with demand reached out to cardio on 02/01, no further workup requird at this time reviewed blood work: troponin (6) Peripheral arterial disease: -Continue aspirin and atorvastatin (7) CAD (coronary artery disease): -Continue aspirin (8) Epilepsy: -Continue BID Carbamazepine (9) GERD (gastroesophageal reflux disease): -Continue IV Protonix daily for now until his constipation/ileus has resolved (10) BPH (benign prostatic hyperplasia): -Continue flomax (11) Hyperactive airway disease: -Continue budesonide and prn albuterol (12) Parkinson's disease: -Continue 1.5 tabs Carbidopa-levodopa QID *Sepsis, POA Patient presents with SIRS criteria of fever 38, WBC 14K, procalcitonin 2.46, hypotension Aspiration pneumonia, SIRS Treatment: Blood cultures, IV antibiotics, IV hydration *Type 2 WA due to demand ischemia Patient presents with AMS, nausea/vomiting. Troponins elevated from [address] changes. Risk Factor(s): As above Treatment: Serial troponins, EKG, telemetryConsulted cardio. no further testing indicated *Metabolic encephalopathy resolved. Patient presents with AMS and treated for aspiration pneumonia and ileus. Risk Factor(s): AMS, pneumonia, elevated troponins, leukocytosis, procalcitonin elevation Treatment: XR, IV hydration, IV Ampicillin Plan Family rpreffered patient to go home with PT script. Explained that PHysical therapy recommedn rehab, however, patient and discussed and preferred to take patient home after reviewing risk and benefits. Total Time Total Time Spent Total Time Spent (In Minutes): 32 Discharge Plan Discharge Items Patient Disposition: Home - Self-Care Reason For Visit: ABD DISTENSION Discharge Diagnosis: aspiration pneumonia Condition on Discharge: Fair Activity: Resume your previous activity Non-emergency contact: Primary Care Provider Call non-emergency contact if: you have any medication questions Follow-up/Referrals: Geraldine Zaman DO [Primary Care Provider] - Diet: Low Fiber Addtl Attending Provider Instructions: Recommend we continue on a low fiber diet. Continue miralax as needed with a goal of 1 BM per day. We will recommend continuing with physical therapy. I will prescribe you a script for you to take for therapy. Please continue antibiotics for 3 more doses, starting tonight. Recommend followup with PCP in 1-2 weeks. Pending Studies at Discharge: No Stand-Alone Forms: [facility] A Bit Lucky, Smoking Cessation Medications and DC Order Prescriptions: New doxycycline hyclate 100 mg capsule 100 mg PO BID Qty: 3 0RF amoxicillin-pot clavulanate 875-125 mg tablet 1 tab PO BID Qty: 3 0RF Continued Breo Ellipta 100-25 mcg/dose blister with device 1 inh inhalation DAILY Qty: 60 5RF famotidine 20 mg tablet 20 mg PO DAILY Qty: 90 1RF fluticasone propionate 50 mcg/actuation spray,suspension 1 spray INTRANASAL BID Qty: 48 1RF carbamazepine 300 mg capsule, ER multiphase 12 hr 300 mg PO BID Qty: 60 2RF atorvastatin 40 mg tablet 40 mg PO Q OTHER DAY Qty: 45 1RF Rx Instructions: 40 mg orally EVERY OTHER DAY; albuterol sulfate 90 mcg/actuation HFA aerosol inhaler 2 puff inhalation Q8H PRN (Reason: shortness of breath or wheezing) Qty: 18 3RF omeprazole 20 mg capsule,delayed release(DR/EC) 20 mg PO HS carbidopa-levodopa 25-100 mg tablet See Rx Instructions PO .COMPLEX Rx Instructions: Take 1.5 tabs in the 8 am; 1.5 tabs at noon ; 1.5 tab 4pm, 1.5 tabs in the 8 pm ropinirole 1 mg tablet See Rx Instructions .ROUTE .COMPLEX Rx Instructions: Take 1 tab PO 8 AM< 1 tab PO at noon and 1 tabs PO 8 pm buspirone 10 mg tablet 10 mg PO BID CBD Gummies 2 tab PO DAILY ondansetron 4 mg tablet,disintegrating 4 mg PO Q8H PRN (Reason: Nausea) (DME) compressor, for nebulizer Device See Rx Instructions .Route Qty: 1 0RF Rx Instructions: As directed albuterol sulfate 2.5 mg /3 mL (0.083 %) solution for nebulization 2.5 mg inhalation QID PRN (Reason: shortness of breath or wheezing) Qty: 180 1RF aspirin [Shiva Low Dose Aspirin] 81 mg tablet,delayed release (DR/EC) 81 mg PO QAM fluoxetine 40 mg capsule 40 mg PO QAM guar gum Packet 0 tbsp PO DAILY Rx Instructions: Patient mixes 1 teaspoon into water once daily. Changed polyethylene glycol 3350 [Miralax] 17 gram powder in packet 17 g PO BID PRN (Reason: 1 BM per day) Qty: 1 0RF No Action tamsulosin [Flomax] 0.4 mg capsule 0.4 mg PO DAILY Qty: 90 2RF Discharge Orders: Discharge Order (Routine); Ordered 02/03/23 Ordered By: Miguel Angel Conner Admission Data Admit Date/Time: 01/30/23 15:03 Attending Provider: Miguel Angel Conner Admit Provider: Jarret Muñoz Primary Care Provider: Geraldine Zaman Other Providers: Jarret Muñoz ; Jefe Prakash ; Tom Mcintyre ; Mayank Matta ; Pk Julien ; Rizwan Alcantara ; Zion Melo Jr ; Cooper Guzman ; Radha Colon ; Bee Sutherland ; Blas Lennon ; Nadeem Drake ; Avila Mclean ; Flor Arana ; Jessie Morejon ; Terrance Villalta ; Rudy Mccord ; Pk Ring V. ; Adarsh rAana Jr Other Interventions: Discharge Summary Assessment (RN) Last Done: 02/03/23 15:58 Coding Level of Care Code 46744 INP/OBS DISCH >30 MIN Diagnoses Acute respiratory failure with hypoxia J96.01 Aspiration pneumonia J69.0 Ileus K56.7 Encephalopathy G93.40 Elevated troponin R77.8 Peripheral arterial disease I73.9 CAD (coronary artery disease) I25.10 Epilepsy G40.909 GERD (gastroesophageal reflux disease) K21.9 BPH (benign prostatic hyperplasia) N40.0 Hyperactive airway disease J45.909 Parkinson's disease G20
== END 2023-02-03 16:41 | disposition home or self-care (01) | DRG 871 ==
LOC: ED 09:13 → SUATTDRO 15:03 → 2N 15:03
DX: N40.0 Benign prostatic hyperplasia without lower urinary tract symptoms; I73.9 Peripheral vascular disease, unspecified; K59.09 Other constipation; Z79.82 Long term (current) use of aspirin; F02.80 Dementia in other diseases classified elsewhere, unspecified severity, without behavioral disturbance, psychotic disturbance, mood disturbance, and anxiety; G20 Parkinson's disease; I21.A1 Myocardial infarction type 2; R77.8 Other specified abnormalities of plasma proteins; G40.909 Epilepsy, unspecified, not intractable, without status epilepticus; K21.9 Gastro-esophageal reflux disease without esophagitis; A41.9 Sepsis, unspecified organism; J69.0 Pneumonitis due to inhalation of food and vomit; I25.10 Atherosclerotic heart disease of native coronary artery without angina pectoris; J96.01 Acute respiratory failure with hypoxia; J45.909 Unspecified asthma, uncomplicated; K56.7 Ileus, unspecified; Z79.899 Other long term (current) drug therapy; Z95.2 Presence of prosthetic heart valve; Z20.822 Contact with and (suspected) exposure to COVID-19; G93.41 Metabolic encephalopathy; Z90.49 Acquired absence of other specified parts of digestive tract